=== PATIENT | male | born 1930 | race Caucasian/White ===

== ENCOUNTER 2017-06-24 16:41 | Inpatient (IN) ==
[2017-06-24] MEDS ORDERED: CARDIZEM IV ONE ×2 (17:07→17:51)
[2017-06-24] MEDS ORDERED: ASPIRIN PO ONE (17:14)
[2017-06-24] MEDS: NS 1,000 ML IV ONE ×2 (17:25→18:48)
--- NOTE | 2017-06-24 17:46 | PROVIDER DOCUMENTATION ---
HPI-General Adult - General Chief Complaint: Syncope Stated Complaint: "PASSED OUT"/PAIN IN LFT SIDE Time Seen by Provider: 06/24/17 17:00 Source: patient Allergies/Adverse Reactions: Patient Allergies Allergy/AdvReac Type Severity Reaction Status Date / Time No Known Allergies Allergy Verified 06/24/17 17:42 Home Medications: Home Medication List Medication Instructions Recorded Confirmed Last Taken Type SIMVAstatin [Zocor] 40 mg PO QHS 12/16/12 06/24/17 06/24/17 History Acetaminophen [Tylenol] 650 mg PO PRN PRN 02/14/16 06/24/17 Unknown History Aspirin 81 mg PO DAILY 06/24/17 06/24/17 06/24/17 History Furosemide 40 mg PO DAILY 06/24/17 06/24/17 06/24/17 History Metoprolol Succinate E.r. [Toprol 25 mg PO DAILY 06/24/17 06/24/17 06/24/17 History Xl] - History of Present Illness -Gen Adult Nature of Presenting Problems: Patient complains of palpitations that started today. He actually had a syncopal episode during one of these. He complains of left chest pain. No fever, headache, n/v, neck pain. He has not history of afib. gxt in 2016 was unremarkable. Location of Pain/Injury: reports: other (left chest) Pain Radiation: reports: no radiation Quality of Pain: reports: aching Severity: reports: mild Onset/Duration: reports: 24 hours ago Timing: reports: still present Context/Activities at Onset: reports: none Modifying Factors: improves with: nothing Associated Symptoms: reports: chest pain, syncope. denies: anxiety, cough, dizziness, fever/chills, headaches, joint pain, malaise, nausea, shortness of breath, pain with inspiration, vomiting, trouble walking Similar Symptoms Previously?: No Recently seen or treated by another doctor?: No Review of Systems - Adult - REVIEW OF SYSTEMS - ADULT Constitutional: reports: no symptoms reported Eyes: reports: no symptoms reported Ears, Nose, Mouth & Throat: reports: no symptoms reported Cardiovascular: reports: see HPI, chest pain, palpitations Respiratory: reports: no symptoms reported Gastrointestinal: reports: no symptoms reported Genitourinary: reports: no symptoms reported Musculoskeletal: reports: no symptoms reported Integumentary: reports: no symptoms reported Neurological: reports: see HPI, syncope Psychiatric: reports: no symptoms reported Endocrine: reports: no symptoms reported Hematologic/Lymphatic: reports: no symptoms reported Allergic/Immunologic: reports: no symptoms reported All Other Systems: Reviewed and Negative Past History - Adult - PAST MEDICAL HISTORY-ADULT Review of Records: reports: Old Records Reviewed, Nursing Assessment Review, Medications Reviewed, Social history reviewed & non-contributory. Major Childhood Illnesses: reports: denies history Cardiovascular: reports: HTN, hyperlipidemia Respiratory: reports: denies history Gastrointestinal: reports: denies history Obstetrical/Gynecological: reports: denies history Genitourinary: reports: denies history Musculoskeletal: reports: denies history Neurological: reports: denies history Endocrine/Immune: reports: denies history Other Conditions: reports: denies history - PRIOR SURGERIES/PROCEDURES Surgical/Procedure History: reports: reviewed, not pertinent - IMMUNIZATION STATUS Childhood Immunizations: See Nurse Assessment Flu Vaccine: See Nurse Assessment - FAMILY HISTORY Family History: reviewed, not pertinent - SOCIAL HISTORY Smoking: denies Substance Use: none/never Alcohol Use Frequency: never Living Situation: family Physical Exam-General - PHYSICAL EXAM-ADULT Initial Vital Signs Reviewed: Yes - CONSTITUTIONAL General Appearance: alert - EYES Eyes: PERRL/EOMI, pink conjunctivae - HEAD, EARS, NOSE, MOUTH & THROAT HENMT: normocephalic/atraumatic, moist mucous membranes - NECK Neck: non-tender, full range of motion, supple - RESPIRATORY Respiratory: lungs clear, normal breath sounds - CARDIOVASCULAR Cardiovascular: normal peripheral pulses, tachycardia - GASTROINTESTINAL (ABDOMEN) Abdominal Exam: normal bowel sounds, non tender, soft - MUSCULOSKELETAL Back Exam: normal inspection Extremity: non-tender. negative: calf tenderness - SKIN Integumentary: normal color, normal turgor, warm/dry - NEUROLOGIC Neurologic: javascript application developer II-XII nml as tested, grossly normal - PSYCHIATRIC Psych/Mental Status: normal mood/affect, oriented x 3 Progress - PLAN OF CARE/RESULTS Progress/Plan/Lab Results: Vital Signs - 8 hr 06/24/17 16:48 Temperature 98.2 F Pulse Rate 77 Respiratory Rate 20 Blood Pressure 152/76 O2 Sat by Pulse Oximetry 96 Orders Category Date Time Status Saline Loc NOW Care 06/24/17 17:02 Active CHEST-PORTABLE [RAD] Stat Exams 06/24/17 17:02 Ordered CBC WITH ELECTRONIC DIFF [HEME] Stat Lab 06/24/17 16:51 Uncollected CK PROFILE [SP CHEM] Stat Lab 06/24/17 16:51 Uncollected COMPREHENSIVE METABOLIC PANEL [CHEM] Stat Lab 06/24/17 16:51 Uncollected MAGNESIUM [CHEM] Stat Lab 06/24/17 16:51 Uncollected PRO B-NATRIURETIC PEPTIDE Stat Lab 06/24/17 16:51 Uncollected PROTIME WITH INR [COAG] Stat Lab 06/24/17 16:51 Uncollected PTT [COAG] Stat Lab 06/24/17 16:51 Uncollected TROPONIN T Stat Lab 06/24/17 16:51 Uncollected 0.9% Sodium Chloride Inj [Ns] 1,000 ml Med 06/24/17 17:02 Active IV 999 mls/hr Aspirin Med 06/24/17 17:14 Once 325 mg PO NOW ONE Diltiazem [Cardizem] Med 06/24/17 17:07 Discontinued 10 mg IV NOW ONE EKG [EKG] Stat Ther 06/24/17 16:51 Ordered Result Diagrams: 06/24/17 17:19 06/24/17 17:19 - REASSESSMENT Reassessment #1 Time Reassessed: 18:30 Status: improving (rate now 90-110 after second dose of cardizem. Blood pressure stable. Will start cardizem gtt. Will admit to ICU. Case and plan of care discussed with Dr. Bosch. Will send for head CT now that stable since pt hit head during sycopal episode.) - XRAY 1 XRAY Study: Chest Impression: See EMR Report (NAF) - CT/MRI 1 CT Study: Head, other (c-spine) Impression: See EMR Report (NAF) - CONSULTS/PCP/HOSPITALIST Notification #1 *Consult/PCP/Hospitalist*: Dr. Hay Time Discussed: 18:32 Consult Disposition: Admit (admit to ICU) Departure - Departure Date of Disposition Decision: 06/24/17 Time of Disposition Decision: 18:31 DIAGNOSIS: Atrial fibrillation with RVR, Renal insufficiency, Syncope and collapse Chest pain Qualifiers: Chest pain type: unspecified Qualified Code(s): R07.9 - Chest pain, unspecified Disposition: ADMITTED INPATIENT 09 Certified Medical Emergency: Emergent Condition: Fair - Critical Care Note This patient required my direct & personal management of CC.: Yes Total Time (mins): 45 Critical Care Statement: This patient required my direct personal management to treat or rule out processes, the absence of which, could potentiallly result in sudden, clinically significant life or limb threatening deterioration. Attestation - Physician/ ALEX Attestation Patient care was provided by Advanced Practice Provider:: Yes Advanced Practice Provider:: Bony Ulrich Advanced Practice Provider documentation review:: The Mid-level provider documentation, treatment plan and medical decision making was reviewed by the physician who agrees with all treatment and medical decision making by the MLP. The physician spent face to face time with patient:: No Advanced Practice Provider documentation review:: Supervising physician onsite and consulted in the evaluation and care of this patient. The physician did not have a face to face encounter with the patient.
--- NOTE | 2017-06-24 17:49 | Diag Imaging Result Doc PS360 ---
CHEST-PORTABLE - 06/24/2017 INDICATION: tachycardia TECHNIQUE: COMPARISON: 02/14/2016 FINDINGS: The lungs are normally expanded and clear. Heart size and mediastinal contours are normal. No pneumothorax or pleural effusion. IMPRESSION: Negative exam. Electronically signed by Mauricio Lovett 06/24/2017 5:47 PM
[2017-06-24 17:58] LABS: MANUAL DIFF NEEDED? NO
[2017-06-24 18:06] LABS: BASO% 0.2 % (0.0-0.8); EOS# 0.12 X1000 (0.0-0.7); HEMATOCRIT 44.8 % (42.0-52.0); HEMOGLOBIN 14.8 g/dL (14.0-18.0); IMM GRAN# 0.03 X1000 (0.0-0.04); IMM GRAN% 0.3 % (0.0-0.5); LYMPH# 2.22 X1000 (1.2-3.4); LYMPH% 19.3 % (20.5-51.1); MCH 28.7 PG (27-31); MCV 86.8 FL (81-99); MONO% 9.6 % (1.7-9.3); MPV 11.1 FL (7.4-10.4); NEUT% 69.6 % (42.2-75.2); PLT 195 X1000 (130-400); RBC 5.16 XMIL (4.7-6.1)
[2017-06-24 18:12] LABS: INR 1.02; PROTIME 10.7 Seconds (9.2-11.7); PTT 27.1 Seconds (22.0-36.0)
[2017-06-24 18:22] LABS: ALBUMIN 3.8 g/dL (3.5-5.0); CALCIUM 9.1 mg/dL (8.8-10.2); MAGNESIUM 2.1 mg/dL (1.5-2.7); POTASSIUM 3.7 mmol/L (3.5-5.1); TOTAL BILIRUBIN 0.65 mg/dL (0.20-1.00); TOTAL PROTEIN 6.7 g/dL (6.3-8.3)
[2017-06-24] MEDS ORDERED: CARDIZEM 100 MG/NS 100 MG/100 ML IVPB IV SCH ×2 (18:22→20:12)
[2017-06-24] MEDS ORDERED: NS 1,000 ML ONE (18:44)
[2017-06-24 18:46] LABS: CK INDEX 2.1 (0.0-2.5); CK-MB 6.32 ng/mL (0.0-5.0)
--- NOTE | 2017-06-24 20:00 | Diag Imaging Result Doc PS360 ---
CT HEAD/C-SPINE W/O CONTRAST - 06/24/2017 INDICATION: fall, syncope TECHNIQUE: A CT dose reduction protocol was used. COMPARISON: None FINDINGS: Head CT: The ventricles and sulci are normal in size and contour. No intracranial mass or hemorrhage. The skull is intact. The sinuses, mastoids, and middle ears are clear. Cervical spine: Alignment is anatomic. No fracture or subluxation. There is advanced multilevel disc degeneration and some mild facet degeneration. No significant central canal stenosis. IMPRESSION: No acute injury. Electronically signed by Mauricio Lovett 06/24/2017 7:58 PM
[2017-06-24] MEDS ORDERED: LANOXIN IV SCH (20:38)
[2017-06-24] MEDS ORDERED: TYLENOL 10 MG/KG PO PRN (20:38)
[2017-06-24] MEDS ORDERED: NS 1,000 ML IV ONE (20:38)
[2017-06-24] MEDS ORDERED: ZOFRAN IV PRN (20:38)
--- NOTE | 2017-06-24 21:02 | HISTORY AND PHYSICAL ---
CHIEF COMPLAINT: Shortness of breath and syncope. HISTORY OF PRESENT ILLNESS: Briefly, this is an 86-year-old gentleman with a history of possibly atrial flutter, who comes in for last 24 hours complaining of palpitations. He had an episode of syncope today where he just flat out passed out and also complained of left-sided chest pain and left arm pain. Reportedly no history of atrial fibrillation, but he does report that he had flutter issues in the past. He had a GXT apparently in 2016, which was unremarkable. He has seen Dr. Selby in the past as well. Today he is in atrial fibrillation with rapid ventricular response and he was admitted for further treatment. Borderline hypotension, he did respond somewhat to Cardizem, but he is still tachycardic with marginal blood pressures. He does report shortness of breath. He does report lower extremity edema. He had an echocardiogram done in February 2016 which showed an EF of 70%, possible hypertrophy, hypokinesis, diastolic dysfunction. Otherwise, really not that remarkable. Patient admitted for atrial fibrillation with rapid ventricular response. PAST MEDICAL HISTORY: 1. Possible aflutter versus atrial fibrillation. 2. Hypertension. 3. Dyslipidemia. PAST SURGICAL HISTORY: Denies. SOCIAL HISTORY: No tobacco. He drinks socially, sometimes wine, sometimes beer, but not on a daily basis. He is retired. ALLERGIES: No known drug allergies. MEDICATIONS: He takes aspirin 81 daily, Lasix 40 daily, Toprol-XL 25 daily, and simvastatin. REVIEW OF SYSTEMS: Negative times a 10-point review of systems. There is no GI bleeding. He has had prostate surgery. It sounds like he has had a TURP. PHYSICAL EXAMINATION: VITAL SIGNS: Blood pressure 113/74, heart rate 140, respiratory rate 92, temperature 98.2 degrees. GENERAL: A well-developed male, in no acute distress. HEAD: Normocephalic, atraumatic. EYES: Pupils equal, round, reactive to light. Extraocular movements were intact. EAR/NOSE/THROAT: Moist mucous membranes. NECK: Supple. CARDIOVASCULAR EXAM: Was tachy, irregular. PULMONARY: Bilateral breath sounds diminished at the bases. He had some rales at the right base. GI: Soft, nontender, nondistended. Bowel sounds are positive. EXTREMITIES: No clubbing or cyanosis. LYMPHATICS: No peripheral edema. NEUROLOGICAL: Nonfocal. LYMPHATIC EXAM: He did have peripheral edema, 2+ pitting edema in his ankles. ASSESSMENT: This is an 86-year-old male with history of aflutter possibly, presenting with atrial fibrillation with rapid ventricular response. 1. Atrial fibrillation with rapid ventricular response. He has been given Cardizem. We will initiate an IV Cardizem drip assuming his blood pressure can tolerate that. I think I may give him some digoxin additionally. We will obviously monitor on telemetry. We will get serial cardiac enzymes. We will get an echocardiogram assuming his heart rate is improved in the morning. Cardiology consultation and follow. He does qualify [id number] above 2. We will initiate Lovenox. He may need an ischemic workup that will be per cardiology's recommendations. 2. Mild kidney injury. We will hold his Lasix, continue hydration and follow. He does have some lower extremity edema, but I am not sure that may be related to heart failure related to his atrial fibrillation. We will give gentle hydration and follow. Supplement potassium, magnesium above 4 and above the level of 2. DISPOSITION: Pending his clinical course. We will continue to monitor. cc: Jose Hay MD
[2017-06-24] MEDS: LOVENOX SUBQ SCH (21:46)
[2017-06-24] MEDS: ZOCOR PO SCH (21:47)
[2017-06-24 22:26] LABS: CK INDEX 2.1 (0.0-2.5); CK-MB 6.13 ng/mL (0.0-5.0)
[2017-06-25] MEDS: TYLENOL PO PRN (00:01)
[2017-06-25 05:24] LABS: HEMATOCRIT 38.2 % (42.0-52.0); HEMOGLOBIN 12.4 g/dL (14.0-18.0); MCH 29.4 PG (27-31); MCHC 32.5 g/dL (33-37); MCV 90.5 FL (81-99); MPV 10.9 FL (7.4-10.4); RBC 4.22 XMIL (4.7-6.1)
[2017-06-25 05:45] LABS: CALCIUM 8.1 mg/dL (8.8-10.2); MAGNESIUM 2.2 mg/dL (1.5-2.7); POTASSIUM 3.8 mmol/L (3.5-5.1)
--- NOTE | 2017-06-25 06:04 | EKG Report ---
Test Performed on : 06/24/2017 4:53:21 PM Test Reason : Re-Ordered/CP Blood Pressure : / mmHG Vent. Rate : 148 BPM Atrial Rate : 166 BPM P-R Int : 000 ms QRS Dur : 106 ms QT Int : 326 ms P-R-T Axes : 000 031 252 degrees QTc Int : 511 ms Atrial fibrillation. with rapid ventricular response. Incomplete right bundle branch block ST \T\ T wave abnormality, consider inferior ischemia ST \T\ T wave abnormality, consider anterolateral ischemia Abnormal ECG When compared with ECG of 14-FEB-2016 22:17, Atrial fibrillation. has replaced Sinus rhythm. Vent. rate has increased BY 84 BPM Incomplete right bundle branch block is now present Inverted T waves have replaced nonspecific T wave abnormality in Inferior leads Unconfirmed Result
[2017-06-25] MEDS: PRILOSEC PO SCH (06:11)
--- NOTE | 2017-06-25 06:33 | EKG Report ---
Test Performed on : 06/24/2017 9:39:27 PM Test Reason : No Order in [facility] Blood Pressure : / mmHG Vent. Rate : 060 BPM Atrial Rate : 060 BPM P-R Int : 138 ms QRS Dur : 102 ms QT Int : 484 ms P-R-T Axes : 031 051 -88 degrees QTc Int : 484 ms Normal sinus rhythm. Incomplete right bundle branch block ST \T\ T wave abnormality, consider inferior ischemia ST \T\ T wave abnormality, consider anterolateral ischemia Prolonged QT Abnormal ECG When compared with ECG of 24-JUN-2017 16:53, (Unconfirmed) Sinus rhythm. has replaced Atrial fibrillation. Vent. rate has decreased BY 88 BPM Nonspecific T wave abnormality now evident in inferior - new Nonspecific T wave abnormality now evident in anterior-septal leads - new consider inferior-lateral ischemia as cause for new changes Clinical Correlation advised Confirmed by Jose Khan DO ([id number]) on 06/26/2017 5:59:18 PM
[2017-06-25] MEDS: TOPROL XL PO SCH (08:48)
[2017-06-25] MEDS: ASPIRIN PO SCH (08:48)
[2017-06-25] MEDS: LOVENOX SUBQ SCH ×2 (08:48→21:23)
--- NOTE | 2017-06-25 09:55 | PROGRESS NOTE ---
DATE: 06/25/2017 SUBJECTIVE: Mr. Cedillo is an 86-year-old who presented with shortness of breath and syncope. He reports that he was in his recliner, had just finished doing some work with a tractor and outside. His is bedbound. Came in, was in the recliner. Got up to go get some I am not sure what that is. When he reached up, that is the last he remembered. He passed out and fell backwards. Complained of some left-sided chest pain and apparently left arm. No history of atrial fibrillation by his report but he said that he had flutter in the past. GXT in 2016 unremarkable. He had a rapid ventricular response and seemed to respond to Cardizem. I think they started some digoxin. Last echocardiogram was in February of 2016. Echocardiogram ejection fraction 70%. Possible hypertrophy. No hypokinesis. I believe that he had some diastolic dysfunction reported. PAST MEDICAL HISTORY: Possible flutter versus atrial fibrillation, hypertension, dyslipidemia. REVIEW OF SYSTEMS: He states he feels weak today but he has not had any further spells. No chest pain. Wants to know when he can go home. PHYSICAL EXAMINATION: Vital Signs: Temperature is 97.7 degrees, pulse 60 respirations 12, blood pressure 106/59. HEENT: Pupils are equal and round. Lungs: Are clear in all lung hernández. Cardiovascular Examination: Regular rhythm and rate without murmur or S3. Abdomen: Soft. Skin: Is warm and dry. Weight: 196 pounds. Urine Output: Over 500 mL. LAB: Reviewed from the and . CBC unremarkable. Chemistries unremarkable. Creatinine 1.2. CPK was 293 and troponin less than 0.01 but then this morning, he had one of 0.034. His EKG this morning, he has right bundle-branch block, nonspecific ST waves in the face of right bundle- branch. Previous EKG early on the , he was in atrial fibrillation with rapid ventricular rate and right bundle-branch pattern at that time as well. ASSESSMENT AND PLAN: 1. Atrial fibrillation with rapid ventricular response. His CHADS2-VASc score is above 2. He is on Lovenox. He was put on some Cardizem. He is in sinus rhythm at the present time. They added some digoxin. Cardiology to evaluate. He has had fairly recent GXT and echocardiogram. We will repeat echocardiogram. 2. Mild kidney injury with creatinine of 1.2. I suspect this is his baseline and may represent some mild chronic kidney disease. They did apply some gentle hydration. 3. A bump in the troponin. It is a little concerning. Last GXT was apparently in 2015. Looking back at his reports, his GXT done February of 2016, study showed normal myocardial perfusion. No evidence of inducible or ischemic scar. Echocardiogram done on 03/09/[address] Selby. Preserved left ventricular function. Ejection fraction above 70%. Again, left ventricle is not well visualized. Possible hypertrophy. Correlation was made with nuclear perfusion scan to exclude a scar, impaired left ventricular relaxation and elevation of atrial pressure consistent with diastolic dysfunction. Pulmonary hypertension with estimated pulmonary arterial pressure of 63 mmHg. There is calcification of the mitral valve annulus but no sign of obstruction. No significant valvular dysfunction appreciated. Did have some mild degree of mitral regurgitation. cc: Marvin Piedra MD
[2017-06-25 10:48] LABS: CK INDEX 2.2 (0.0-2.5); CK-MB 5.92 ng/mL (0.0-5.0)
--- NOTE | 2017-06-25 10:54 | CONSULTATION ---
DATE OF CONSULTATION: 06/25/2017 INDICATION: New-onset atrial fibrillation. HISTORY OF PRESENT ILLNESS: Mr. Cedillo is an 86-year-old white male with a history of hyperlipidemia and hypertension, who normally follows with Dr. Selby. He presented for evaluation of a fall and new-onset atrial fibrillation yesterday. Apparently, he was working for 2 to 3 hours on his tractor yesterday in the morning. He came home for a little bit of rest. Apparently had some family over. He went back out for another 30 minutes to do some light activity, and then came in. He apparently sat down for some rest on his recliner. Shortly after that, for some reason, he got up to take an aspirin. He could not clarify exactly why he needed the aspirin, but shortly after standing up, he walked over into the kitchen to get the bottle, and apparently upon reaching over to get it, he got real lightheaded and fell backwards onto the floor. He remembers hitting the floor. It does not appear that he had a syncopal spell. He was unable to get up off the floor immediately after the event, and was able to get to the phone, called 911, and within 5 to 10 minutes, he believes EMS arrived and were able to get him off the floor. He refused transfer to the hospital via EMS. Eventually, his son came over and brought him to the hospital. He did not have any heart racing. He has a lot of difficulty clarifying when he had any sort of onset of chest discomfort. He adamantly denied any sort of chest discomfort occurring while he was in the chair, prompting him to get the aspirin. He may have had onset of chest discomfort after he fell. That was described as a left-sided aching discomfort in his shoulder area, down his left arm. He has no history of coronary disease. He had a normal stress test 1 year ago. PAST MEDICAL HISTORY: Significant for: 1. Hypertension. 2. Hyperlipidemia. 3. Sleep apnea. 4. History of palpitations. 5. History of chest pain evaluation with normal nuclear scan in 02/2016. SOCIAL HISTORY: He lives at home with his , who is apparently homebound. No tobacco. FAMILY HISTORY: Significant for hypertension. REVIEW OF SYSTEMS: A 10-system review of systems is negative, except for those things mentioned in the HPI. PHYSICAL EXAMINATION: Vital Signs: He is afebrile, heart rate presently is in the high 50s to low 60s, blood pressure 106/59. General: He is in no acute distress. HEENT: Oropharynx is moist. He is essentially edentulous. Eye examination shows pink conjunctivae. White sclerae. Neck: No obvious thyromegaly or thyroid tenderness. Cardiovascular: He appears to be in a regular rate and rhythm. He has no obvious murmurs. Telemetry currently shows sinus. Extremities: He has no lower extremity edema. Warm and well-perfused lower extremities. Chest: Clear bilaterally. He has no increased work of breathing. Abdomen: Soft, nontender, nondistended. He has no obvious organomegaly. Skin: Warm and dry throughout without any rashes. Neurological: He is moving all extremities well. Cranial nerves II through XII are intact without any sensation deficits. Psychiatric: He is alert, oriented, pleasant. Normal mood and affect. PERTINENT DATA: His EKG at 1652 yesterday shows atrial fibrillation, rapid ventricular response, rate of 148 beats per minute. He does have symmetric T-wave inversions in the anterolateral leads. Subsequent EKG at 1851 was essentially identical to that. His final EKG at 2138 yesterday shows sinus rhythm, rate of 60 beats per minute, symmetric T-wave inversions in the anterolateral leads. This appears consistent with his most recent EKG from his visit with Dr. Selby in 01/2017. His laboratory data shows a white count of 6, his hematocrit is 38.2, his platelet count is 144,000. With hydration, he has gone from hematocrit of 44 to 38. His sodium is 142, potassium 3.8, BUN 21, creatinine 1.2 (yesterday, it was 25 and 1.3). His cardiac enzymes have been negative thus far. His proBNP was 2579 yesterday. TSH normal. ASSESSMENT: 1. Fall. 2. Probable dehydration. 3. New-onset atrial fibrillation. PLAN: His EKG is unchanged. His cardiac enzymes are unremarkable. For now, we will order him a diet and make him n.p.o. after midnight for potential stress testing tomorrow if issues change, but currently we will treat him as a new-onset atrial fibrillation. His echo is pending. We will consider oral anticoagulation tomorrow, but will need to have further discussions with him about his fall risk. For now, would continue with the current evaluation. cc: Bernard Khan MD
--- NOTE | 2017-06-25 17:29 | ECHO REPORT ---
ORDER DATE: 06/25/2017 INTERPRETING PHYSICIAN: Dr. Selby REQUESTING PHYSICIAN: CLINICAL INDICATIONS: An 86-year-old male with syncope, shortness of breath. M-MODE MEASUREMENTS: Right ventricle: 2.8 cm. Left ventricle end diastole: 4.3 cm. Left ventricle end systole: 2.7 cm. Posterior wall: 1.1 cm. Interventricular septum: 1.2 cm. Left atrium: 5.2 cm. Aortic root: 3.5 cm. SUMMARY OF 2-DIMENSIONAL IMAGING: The left ventricle is hypertrophic. The hypertrophy appears to be mostly confined to the apex of the left ventricle. The aortic valve looks normal. Color flow mapping unremarkable. The mitral annulus shows moderate calcification. Color flow mapping of the mitral valve indicates a [id number] degree of regurgitation. The right ventricle appears to be at the upper limits of normal. The left atrium is significantly enlarged. Pulse wave Doppler of mitral inflow shows "normal" E/A ratio. Tissue Doppler of septal and lateral mitral annulus averages 7 cm per second. There is no significant diastolic dysfunction. The pulmonic valve appears to be grossly normal. The tricuspid valve shows a moderate degree of regurgitation with pulmonary pressure estimated at 78 mmHg. There is no pericardial effusion. The inferior vena cava is not dilated. The right atrium is unremarkable. Definity was injected to better define the apex of the left ventricle. The apex appears to be hypertrophic. This probably represents a case of apical left ventricular hypertrophy. IMPRESSION: In summary, this study shows: 1. Excellent left ventricular systolic function. Ejection fraction estimated at 70% or so with hypertrophy of the apex with a focal area of impairment in the most apical portion of the anterior wall suggesting either ischemia or a focal scar versus just an abnormal contractility pattern related to the apical hypertrophy. 2. Dense calcification of mitral annulus. 3. Moderate to significant pulmonary hypertension. Clinical correlation recommended. Please take notice that Definity was used to opacify the left ventricular chamber in this study. cc: MD Jose Jonas MD
[2017-06-25 19:56] LABS: CK INDEX 1.3 (0.0-2.5); CK-MB 5.35 ng/mL (0.0-5.0)
[2017-06-25] MEDS: ZOCOR PO SCH (21:23)
[2017-06-26] MEDS: TYLENOL PO PRN (00:15)
[2017-06-26] MEDS: PRILOSEC PO SCH (06:19)
--- NOTE | 2017-06-26 06:53 | EKG Report ---
Test Performed on : 06/26/2017 06:15:37 AM Test Reason : afib Blood Pressure : / mmHG Vent. Rate : 062 BPM Atrial Rate : 062 BPM P-R Int : 144 ms QRS Dur : 110 ms QT Int : 410 ms P-R-T Axes : 044 011 -39 degrees QTc Int : 416 ms Sinus rhythm. with occasional premature ventricular complexes. Incomplete right bundle branch block Nonspecific ST and T wave abnormality Abnormal ECG When compared with ECG of 24-JUN-2017 21:39, (Unconfirmed) premature ventricular complexes. are now present Nonspecific T wave abnormality has replaced inverted T waves in Inferior leads Nonspecific T wave abnormality has replaced inverted T waves in Anterior leads Clinical Correlation advised Confirmed by Jose Khan DO ([id number]) on 06/26/2017 6:16:19 PM
--- NOTE | 2017-06-26 08:18 | PROGRESS NOTE ---
DATE: 06/26/2017 SUBJECTIVE: Mr. Cedillo is 86 years old. He had a good night. He has not had any further chest pain. He remains in sinus rhythm. EKG this morning really similar to EKGs yesterday. Right bundle branch block, nonspecific T-wave, flattening and inversion inferior and anterior lateral leads. He remains afebrile. OBJECTIVE: Vital Signs: Temperature 97.4 degrees, pulse 60, respirations 18, blood pressure 127/63. 6 cm. Lungs are clear in all lung hernández. Cardiovascular: Regular rhythm and rate without murmur or S3. Abdomen soft. Skin is warm and dry. Urine output is over a 1000 mL. LABORATORY DATA: White count 6050, hematocrit 38, platelet count 144,000. Chemistries from yesterday reviewed. CPK: Series 269 with an index 2.2 and then 415 with an index of 1.3. MB fraction was 5.9 and 5.35. His troponin though has come down. It was 0.34, yesterday, 0.32 and this morning 0.017. ASSESSMENT AND PLAN: 1. He had a fall. It does not sound like it was a true syncopal episode. Question on when chest pain started. He has mild elevation of CPK. EKG with right bundle branch block. Nonspecific T-wave inversion. Suspect we are pursuing a stress test. His echocardiogram showed good left ventricular function. He does have some pulmonary hypertension with a calculated pulmonary arterial pressure of 78 mmHg. Ejection fraction 70%. He had some hypertrophy of the apex and focal area of impairment in the most apical portion of the anterior wall suggestive of either ischemia or focal scar. 2. Mild kidney injury. Creatinine is 1.2, and it has been stable. I suspect he has some mild chronic kidney insufficiency. 3. Atrial fibrillation with rapid ventricular rate on presentation, and his CAD Score is above 2 but we have to assess his fall risk. He was put on some Cardizem. He is converted back to sinus rhythm. cc: Marvin Piedra MD
[2017-06-26] MEDS: LOVENOX SUBQ SCH (08:35)
[2017-06-26] MEDS: ASPIRIN PO SCH (08:35)
--- NOTE | 2017-06-26 09:08 | PROGRESS NOTE ---
DATE: 06/26/2017 SUBJECTIVE: Mr. Cedillo is not in any chest pain overnight. No heart racing. OBJECTIVE: Vital Signs: On physical examination, he is afebrile. Heart rate of 55, blood pressure 112/63. His current telemetry seems to show that he is in sinus rhythm with relative sinus bradycardia. General: No acute distress. Cardiovascular: He is in a regular rate and rhythm. No murmurs. No S3. Abdomen: Soft, nontender, nondistended. He has no obvious organomegaly. Skin Exam: Warm and dry throughout. PERTINENT DATA: White count is 6, hematocrit 38.2, platelet count 144. Sodium 142, potassium 3.8, BUN 21, creatinine 1.2. His cardiac enzymes: Specifically, his troponin has been negative. His CK-MB's have been slightly positive, but the indexes are normal with the elevations of his CK's taken into account. ASSESSMENT: 1. New onset atrial fibrillation. 2. Fall. PLAN: We will proceed with myocardial perfusion imaging as the patient is a poor historian, and there was some discussion about whether or not the patient had some chest discomfort in the last 48 hours or so. It does not appear to have had a syncopal episode recently. We will proceed with myocardial perfusion imaging, and again he is a questionable candidate for anticoagulation long- term because of recent issues with falls. His echocardiogram was performed yesterday. This did demonstrate a preserved EF with a focal area of impairment in the most apical portion, possibly due to focal hypertrophy in that area versus possible ischemia or scar. Again, perfusion imaging to be performed today. cc: Bernard Khan MD
[2017-06-26] MEDS ORDERED: LEXISCAN ONE (14:25)
[2017-06-26] MEDS: TOPROL XL PO SCH (15:14)
[2017-06-26 15:53] VITALS: BP 127/58
--- NOTE | 2017-06-26 16:03 | Diag Imaging Result Document ---
PROCEDURE NAME: MYOCARDIAL PERF SCAN, STR/REST - 06/26/2017 STUDY: Myocardial perfusion scan. INDICATION: Chest pain. PROCEDURES PERFORMED: 1. One-day stress-rest myocardial perfusion imaging. 2. Lexiscan stress. PROCEDURE IN DETAIL: Mr. Cedillo was brought to the nuclear laboratory and had a resting study with injection of 13 mCi of technetium-99m sestamibi with usual imaging protocol utilized. He subsequently was brought back and had a Lexiscan stress. At peak stress, he was injected with 41.1 mCi of technetium-99m sestamibi with usual imaging protocol utilized. FINDINGS: LEXISCAN STRESS RESULTS: 1. Baseline EKG shows sinus rhythm. 2. Lexiscan stress did not demonstrate any clear evidence of ischemic related EKG changes or significant arrhythmias. PERFUSION IMAGING RESULTS: 1. No evidence of abnormal extracardiac uptake. 2. No evidence of transient ischemic dilatation. 3. Perfusion imaging shows normal homogeneous uptake of radiotracer throughout the myocardial segments. There is no evidence of stress-related defects. 4. There is a normal ejection fraction of 83%. End-diastolic volume 75, end-systolic volume of 13. Normal wall motion. cc: MD Zarina Duron PA
--- NOTE | 2017-06-26 16:46 | DISCHARGE SUMMARY ---
ADMISSION DATE: 06/24/2017 DISCHARGE DATE: 06/26/2017 HISTORY OF PRESENT ILLNESS: An 86-year-old, white male, with history of possible atrial flutter, who presented with shortness of breath and syncope on 06/24/2017. He had a history of palpitations and episodic syncope the day of admission where he just flat passed out, complained of left-sided chest pain and flutter issues in the past. He has had a GXT in 2016, but it was unremarkable and followed by Dr. Selby. He also presented today with atrial fibrillation and rapid ventricular rate and admitted for further treatment. PAST MEDICAL HISTORY: 1. Atrial flutter versus atrial fibrillation. 2. Hypertension. 3. Dyslipidemia. SOCIAL HISTORY: No history of tobacco. He drinks socially. PAST SURGICAL HISTORY: Really negative. HOSPITAL COURSE: Cardiology was consulted. He was admitted. Dr. Khan saw him. He apparently was working for 2 or 3 hours on his tractor in the morning, came home, got a little bit of rest and went out and did a little more activity. He came in and sat down for some rest in his recliner. Shortly after that for some reason he got up to get an aspirin. Did not clarify what he needed it for, was not sure if it was chest pain, but he denies that it was chest pain, but he got up to get an aspirin and then, when he walked over to the kitchen get the bottle apparently reached up and he fell backwards. He apparently did not pass out by his report, but he fell back and hit his head. He was not able to get up from the floor so dialed 911. The paramedics came in 5 to 10 minutes, and were able to get him off the floor. He refused transfer via EMS. Eventually, his son came over and talked him into coming in the hospital. Denied any further chest pain. On monitor he went back into sinus rhythm. On the Vas cath score he technically would benefit on risk scale for anticoagulant, but his risk of fall and his independence after talking to him I think that the risk of having anticoagulant would be higher than the risk of not taking it. He underwent a myocardial perfusion scan and it was unremarkable. No sign of coronary reperfusion, and felt he could go home. We will continue his current medications. Want to follow with Dr. Selby in a couple months. DISCHARGE MEDICATIONS: 1. Aspirin 81 mg a day. 2. Toprol-XL 25 mg a day. 3. Prilosec 40 mg a day. 4. Zocor 40 mg daily. cc: Marvin Piedra MD
== END 2017-06-26 17:57 | disposition home or self-care (01) ==
LOC: ED 16:41 → SUATTDRO 19:44 → 3S 19:44
PROVIDERS: ATTEND Emergency Medicine

== ENCOUNTER 2018-10-13 22:29 | Inpatient (IN) ==
[2018-10-13] MEDS ORDERED: ASPIRIN PO ONE (22:44)
[2018-10-13] MEDS ORDERED: G.I. COCKTAIL PO ONE (22:46)
[2018-10-13] MEDS ORDERED: SODIUM CHLORIDE 0.9% INJ ONE (22:58)
[2018-10-13] MEDS ORDERED: PHENERGAN IV ONE (22:58)
[2018-10-13] MEDS ORDERED: MORPHINE IV ONE (22:58)
[2018-10-13 23:23] LABS: BASO# 0.02 X1000 (0.0-0.2); BASO% 0.2 % (0.0-0.8); EOS% 1.6 % (0.0-10.0); HEMATOCRIT 46.8 % (42.0-52.0); HEMOGLOBIN 15.2 g/dL (14.0-18.0); IMM GRAN# 0.04 X1000 (0.0-0.04); IMM GRAN% 0.3 % (0.0-0.5); LYMPH# 2.35 X1000 (1.2-3.4); MCH 28.4 PG (27-31); MCHC 32.5 g/dL (33-37); MCV 87.5 FL (81-99); MONO# 0.62 X1000 (0.11-0.59); MPV 10.5 FL (7.4-10.4); NEUT# 9.17 X1000 (1.4-6.5); NEUT% 73.9 % (42.2-75.2); PLT 188 X1000 (130-400); RBC 5.35 XMIL (4.7-6.1)
--- NOTE | 2018-10-13 23:30 | EKG Report ---
Test Performed on : 10/13/2018 10:54:41 PM Test Reason : epigastric Blood Pressure : / mmHG Vent. Rate : 059 BPM Atrial Rate : 059 BPM P-R Int : 162 ms QRS Dur : 120 ms QT Int : 468 ms P-R-T Axes : 062 023 040 degrees QTc Int : 463 ms Sinus bradycardia. Right bundle branch block T wave abnormality, consider lateral ischemia Abnormal ECG When compared with ECG of 23-JUL-2017 09:31, Previous ECG has undetermined rhythm, needs review Right bundle branch block has replaced RSR' pattern in V1 Nonspecific T wave abnormality has replaced inverted T waves in Inferior leads Unconfirmed Result
[2018-10-13 23:38] LABS: INR 0.96; PROTIME 13.3 Seconds (11.0-16.0)
[2018-10-13 23:39] LABS: PTT 36.1 Seconds (22.3-41.8)
[2018-10-13 23:47] LABS: ALBUMIN 3.5 g/dL (3.5-5.0); ALKALINE PHOSPHATASE 92 U/L (32-122); BUN 14 mg/dL (8-22); CALCIUM 9.3 mg/dL (8.8-10.2); CK PROFILE 119 U/L (24-204); CREATININE 1.3 mg/dL (0.7-1.2); ESTIMATED GFR 52; GLUCOSE 142 mg/dL (70-104); GOT 247 U/L (10-34); GPT 99 U/L (10-44); TOTAL PROTEIN 6.9 g/dL (6.3-8.3)
[2018-10-13 23:49] LABS: AGAP 13; CHLORIDE 102 mmol/L (98-107); POTASSIUM 4.4 mmol/L (3.5-5.1); SODIUM 138 mmol/L (136-145); TCO2 24 mmol/L (25-35)
[2018-10-14] MEDS ORDERED: NS 1,000 ML IV ONE ×4 (01:07→06:45)
[2018-10-14] MEDS ORDERED: ZOSYN 3.375 GM in NS 50 ML IV ONE ×2 (01:29→11:59)
[2018-10-14 03:00] LABS: BILIRUBIN URINE NEGATIVE (NEGATIVE); BLOOD URINE 3+ (NEGATIVE); CLARITY CLEAR (CLEAR); COLOR YELLOW; GLUCOSE URINE NEGATIVE (NEGATIVE); KETONE URINE NEGATIVE (NEGATIVE); LEUKOCYTES URINE 2+ (NEGATIVE); NITRITE URINE NEGATIVE (NEGATIVE); PROTEIN URINE TRACE mg/dL (NEGATIVE); URINE SOURCE CATH; UROBILINOGEN URINE 8 mg/dL
[2018-10-14 03:13] LABS: URINE BACTERIA 4+ /HFP; URINE EPITHELIAL CELLS <10 /HPF (<10); URINE RBC 20-40 /HPF (<10)
[2018-10-14] MEDS ORDERED: VANCOMYCIN 1 GM/NS 1 GM/250 ML IVPB IV ONE ×2 (03:53→07:30)
--- NOTE | 2018-10-14 04:22 | PROVIDER DOCUMENTATION ---
HPI-Abdominal Pain/GI Problem - General Chief Complaint: Nausea Stated Complaint: abdominal pain Time Seen by Provider: 10/13/18 23:19 Source: patient Allergies/Adverse Reactions: Patient Allergies Allergy/AdvReac Type Severity Reaction Status Date / Time No Known Allergies Allergy Verified 06/24/17 17:42 Home Medications: Home Medication List Medication Instructions Recorded Confirmed Last Taken Type SIMVAstatin [Zocor] 40 mg PO QHS 12/16/12 10/13/18 06/24/17 History Aspirin 81 mg PO DAILY 06/24/17 10/13/18 06/24/17 History Furosemide 40 mg PO DAILY 06/24/17 10/13/18 06/23/17 History Acetaminophen [Tylenol] 650 mg PO Q6H PRN PRN #0 tablet 06/26/17 10/13/18 Unknown Rx Metoprolol Succinate E.r. [Toprol 25 mg PO DAILY tablet 06/26/17 10/13/18 Unknown Rx Xl] Amiodarone [Cordarone] 200 mg PO DAILY #30 tablet 07/24/17 10/13/18 Unknown Rx - History of Present Illness-ABD Nature of Presenting Problems: pt is 87 yo WM w c/o epigastric pain and n/v onset tonight [employer], after eating chili and beans, upon arrival patient was vomiting several episodes, pt. states pain is severe w/o relieving or exacerbating factors, pt is A&Ox 3 and answering questions appropriately. pt has edema to left lower leg +3 pitting, pt states it does that sometimes and usually resolves in AM, pt lungs are clear CTA at the time of arrival, pt deneis fever, diarrhea, syncope, CP or congestion at this time, pt has HX of CHF and HTN controlled with medication. Abdominal Pain Onset Location: reports: epigastric, generalized abdomen Pain Radiation: reports: no radiation Quality of Pain: reports: pressure, sharp Severity in ED: reports: severe Onset/Duration: reports: 1-3 hours ago Timing: reports: still present, intermittent Activities at Onset: reports: eating Exposure to sick contacts?: No Modifying Factors: improves with: nothing Associated Symptoms: reports: diaphoresis, heartburn, nausea, pain with inspiration. denies: chest pain, constipation, cough, diarrhea, dizziness, EENT symptoms, fatigue, fever/chills, headaches, joint pain, loss of appetite, sinus congestion/drainage, seizure, shortness of breath, sensory/motor loss Last BM: unsure Dark Stools Present?: reports: none noticed Rectal Bleeding: reports: none Rectal Pain: reports: none # of Vomiting Episodes: 5 Emesis Description: reports: other (green bile appearance) Bruising or Bleeding Gums?: No Similar Symptoms Previously?: No Recently seen or treated by another doctor?: No Review of Systems - Adult - REVIEW OF SYSTEMS - ADULT Constitutional: reports: fatique Eyes: reports: no symptoms reported Ears, Nose, Mouth & Throat: reports: no symptoms reported Cardiovascular: reports: edema Respiratory: reports: no symptoms reported Gastrointestinal: reports: abdominal pain, frequent heartburn, nausea, vomiting Genitourinary: reports: no symptoms reported Musculoskeletal: reports: no symptoms reported Integumentary: reports: no symptoms reported Neurological: reports: no symptoms reported Psychiatric: reports: no symptoms reported Endocrine: reports: no symptoms reported Hematologic/Lymphatic: reports: no symptoms reported Allergic/Immunologic: reports: no symptoms reported All Other Systems: Reviewed and Negative Past History - Adult - PAST MEDICAL HISTORY-ADULT Review of Records: reports: Old Records Reviewed, Nursing Assessment Review, Medications Reviewed Major Childhood Illnesses: reports: denies history Cardiovascular: reports: CHF, HTN, hyperlipidemia Respiratory: reports: denies history Gastrointestinal: reports: denies history Obstetrical/Gynecological: reports: denies history Genitourinary: reports: kidney stones Musculoskeletal: reports: denies history Neurological: reports: denies history Endocrine/Immune: reports: denies history Other Conditions: reports: denies history - PRIOR SURGERIES/PROCEDURES Surgical/Procedure History: reports: reviewed, not pertinent - IMMUNIZATION STATUS Childhood Immunizations: See Nurse Assessment Flu Vaccine: See Nurse Assessment - FAMILY HISTORY Family History: reviewed, not pertinent - SOCIAL HISTORY Smoking: denies, quit greater than 1 year Substance Use: none/never Alcohol Use Frequency: never Living Situation: family Physical Exam-General - PHYSICAL EXAM-ADULT Initial Vital Signs Reviewed: Yes - CONSTITUTIONAL General Appearance: alert, severe distress, anxious - EYES Eyes: PERRL/EOMI, pink conjunctivae, sclera injected. negative: anisocoria, conjuctival exudate, photophobia, scleral icterus - HEAD, EARS, NOSE, MOUTH & THROAT HENMT: normocephalic/atraumatic, pharynx normal. negative: moist mucous membranes - NECK Neck: non-tender, supple. negative: carotid bruit, lymphadenopathy - RESPIRATORY Respiratory: chest non-tender, lungs clear, normal breath sounds, no pleuratic chest pain, no respiratory distress, no accessory muscle use - CARDIOVASCULAR Cardiovascular: normal peripheral pulses, regular rate, rhythm, no JVD, no murmur, other (+3 pitting edema to left lower extremitiy extending to knee) - GASTROINTESTINAL (ABDOMEN) Abdominal Exam: normal bowel sounds, soft, guarding, Sánchez's sign. negative: abdominal bruit, rigid, rebound, mass, prominent aortic pulsations - LYMPHATIC Lymphatic: no adenopathy - MUSCULOSKELETAL Back Exam: normal inspection Extremity: normal range of motion, no calf tenderness, pedal edema, other (left lower extremity edema, all other extremities WNL, pulses present in all extremities) Peripheral Pulses: radial (R): 2+, radial (L): 2+, dorsalis-pedis (R): 1+, dorsalis-pedis (L): 1+ - SKIN Integumentary: normal color, normal turgor, warm/dry - NEUROLOGIC Neurologic: grossly normal, no motor/sensory deficits. negative: EOM palsy, facial droop, motor weakness - PSYCHIATRIC Psych/Mental Status: normal mood/affect, normal thought content, normal thought process, oriented x 3 Progress - PLAN OF CARE/RESULTS Progress/Plan/Lab Results: Vital Signs - 8 hr 10/13/18 22:29 10/14/18 00:00 10/14/18 02:54 Temperature 96.7 F L 98.2 F 98.2 F Pulse Rate 62 86 90 Respiratory Rate 16 22 15 Blood Pressure 137/70 127/88 108/50 O2 Sat by Pulse Oximetry 99 96 94 L Laboratory Results - last 24 hr 10/13/18 10/13/18 10/13/18 23:10 23:10 23:10 WBC 12.40 H RBC 5.35 Hgb 15.2 Hct 46.8 MCV 87.5 MCH 28.4 MCHC 32.5 L RDW Std Deviation 14.0 Plt Count 188 MPV 10.5 H Immature Gran % (Auto) 0.3 Neut % (Auto) 73.9 Lymph % (Auto) 19.0 L [place] % (Auto) 5.0 Eos % (Auto) 1.6 Baso % (Auto) 0.2 Immature Gran # (Auto) 0.04 Neut # (Auto) 9.17 H Lymph # (Auto) 2.35 [place] # (Auto) 0.62 H Eos # (Auto) 0.20 Baso # (Auto) 0.02 PT INR PTT (Actin FS) Sodium 138 Potassium 4.4 Chloride 102 Carbon Dioxide 24 L Anion Gap 13 BUN 14 Creatinine 1.3 H Estimated GFR/1.73 m2 52 BUN/Creatinine Ratio 11 Glucose 142 H Calcium 9.3 Total Bilirubin 2.60 H AST 247 H ALT 99 H Alkaline Phosphatase 92 Creatine Kinase 119 Troponin T Aqi-O-Brauaozezbn Pept Total Protein 6.9 Albumin 3.5 Globulin 3.0 Albumin/Globulin Ratio 1.0 Amylase Lipase 1225 H Plasma Lactate Urine Source Urine Color Urine Clarity Urine pH Ur Specific [place] Urine Protein Urine Ketones Urine Blood Urine Nitrite Urine Bilirubin Urine Urobilinogen Urine Microscopic RBC Urine WBC Urine Microscopic WBC Ur Epithelial Cells Urine Bacteria Urine Glucose 10/13/18 10/13/18 10/13/18 23:10 23:10 23:10 WBC RBC Hgb Hct MCV MCH MCHC RDW Std Deviation Plt Count MPV Immature Gran % (Auto) Neut % (Auto) Lymph % (Auto) [place] % (Auto) Eos % (Auto) Baso % (Auto) Immature Gran # (Auto) Neut # (Auto) Lymph # (Auto) [place] # (Auto) Eos # (Auto) Baso # (Auto) PT 13.3 INR 0.96 PTT (Actin FS) 36.1 Sodium Potassium Chloride Carbon Dioxide Anion Gap BUN Creatinine Estimated GFR/1.73 m2 BUN/Creatinine Ratio Glucose Calcium Total Bilirubin AST ALT Alkaline Phosphatase Creatine Kinase Troponin T < 0.010 Exk-Q-Zrtwfacpofh Pept 2754 H Total Protein Albumin Globulin Albumin/Globulin Ratio Amylase Lipase Plasma Lactate Urine Source Urine Color Urine Clarity Urine pH Ur Specific [place] Urine Protein Urine Ketones Urine Blood Urine Nitrite Urine Bilirubin Urine Urobilinogen Urine Microscopic RBC Urine WBC Urine Microscopic WBC Ur Epithelial Cells Urine Bacteria Urine Glucose 10/13/18 10/14/18 10/14/18 23:10 01:58 02:07 WBC RBC Hgb Hct MCV MCH MCHC RDW Std Deviation Plt Count MPV Immature Gran % (Auto) Neut % (Auto) Lymph % (Auto) [place] % (Auto) Eos % (Auto) Baso % (Auto) Immature Gran # (Auto) Neut # (Auto) Lymph # (Auto) [place] # (Auto) Eos # (Auto) Baso # (Auto) PT INR PTT (Actin FS) Sodium Potassium Chloride Carbon Dioxide Anion Gap BUN Creatinine Estimated GFR/1.73 m2 BUN/Creatinine Ratio Glucose Calcium Total Bilirubin AST ALT Alkaline Phosphatase Creatine Kinase Troponin T Ejr-[id number]-Npsbgxlfshy Pept Total Protein Albumin Globulin Albumin/Globulin Ratio Amylase 256 H Lipase Plasma Lactate 3.4 H Urine Source CATH Urine Color YELLOW Urine Clarity CLEAR Urine pH 7.0 Ur Specific [place] 1.010 Urine Protein TRACE A Urine Ketones NEGATIVE Urine Blood 3+ A Urine Nitrite NEGATIVE Urine Bilirubin NEGATIVE Urine Urobilinogen 8 Urine Microscopic RBC 20-40 A Urine WBC 2+ A Urine Microscopic WBC 10-20 A Ur Epithelial Cells <10 Urine Bacteria 4+ Urine Glucose NEGATIVE Orders Category Date Time Status Cardiac Monitoring DIRECTED Care 10/13/18 22:44 Active Oxygen Therapy- ED Nursing DIRECTED Care 10/13/18 22:44 Active Saline Loc NOW Care 10/13/18 22:44 Active NPO Diet 10/13/18 22:45 Active CHEST-2 VIEWS [RAD] Stat Exams 10/13/18 22:44 Taken AMYLASE [CHEM] Stat Lab 10/14/18 03:03 Completed BLOOD CULTURE [BLDCUL] Stat Lab 10/14/18 01:29 Ordered CBC WITH ELECTRONIC DIFF [HEME] Stat Lab 10/13/18 23:10 Completed CK PROFILE [SP CHEM] Stat Lab 10/13/18 23:10 Completed CK PROFILE [SP CHEM] Stat Lab 10/14/18 03:31 Ordered COMPREHENSIVE METABOLIC PANEL [CHEM] Stat Lab 10/13/18 23:10 Completed LACTATE, PLASMA [CHEM] Stat Lab 10/14/18 01:58 Completed LIPASE [CHEM] Stat Lab 10/13/18 23:10 Completed PRO B-NATRIURETIC PEPTIDE Stat Lab 10/13/18 23:10 Completed PROTIME WITH INR [COAG] Stat Lab 10/13/18 23:10 Completed PTT [COAG] Stat Lab 10/13/18 23:10 Completed TROPONIN T Stat Lab 10/13/18 23:10 Completed TROPONIN T Stat Lab 10/14/18 03:31 Ordered UA NIMS W/REFLEX CULT PL [URINALYSIS] Stat Lab 10/14/18 02:07 Completed URINE CULTURE [RM] Routine Lab 10/14/18 03:14 Ordered 0.9% Sodium Chloride Inj [Ns] 1,000 ml Med 10/14/18 01:07 Discontinued IV 999 mls/hr 0.9% Sodium Chloride Inj [Ns] 1,000 ml Med 10/14/18 03:53 Active IV 999 mls/hr Aspirin Med 10/13/18 22:44 Discontinued 325 mg PO NOW ONE Lido/Juares Alk/Al&mg Hydrox [G.i. Cocktail] Med 10/13/18 22:46 Discontinued 30 ml PO NOW ONE Morphine Med 10/13/18 22:58 Discontinued 2 mg IV NOW ONE Piperacillin/Tazobactam [Zosyn] 3.375 gm Med 10/14/18 01:29 Discontinued 0.9% Sodium Chloride Inj [Ns] 50 ml IV NOW Promethazine [Phenergan] Med 10/13/18 22:58 Discontinued 25 mg IV NOW ONE Sodium Chloride 0.9% Med 10/13/18 22:58 Discontinued 10 ml INJ NOW ONE Vancomycin 1 gm/Ns Med 10/14/18 03:53 Active 1 gm in 250 ml IV NOW Abd Pain/OB <20 weeks Stat Oth 10/13/18 22:44 Ordered CP/SOB/Palp >45 yrs of Age Stat Oth 10/13/18 22:44 Ordered EKG [EKG] Stat Ther 10/13/18 22:44 Draft EKG [EKG] Stat Ther 10/14/18 03:31 Ordered patient deteriorated following consult with june, will admit patient to ICU at [facility], patient given 1500 ml bolus due to signs of fluid overload and elevated pro-BNP, pt BP MAP above 60, fluids and antibiotics started after results labs were revealed. pt lactate returned elevated and BP began to trend downward so patient will be transferred to ICU not the floor. Result Diagrams: 10/13/18 23:10 10/13/18 23:10 - REASSESSMENT Reassessment #1 Time Reassessed: 00:30 Status: improving Reassessment Comment: pt states pain and nausea are better, pt more calm Reassessment #2 Time Reassessed: 01:30 Status: unchanged Reassessment Comment: pt still no vomiting, pain under control at this time Reassessment #3 Time Reassessed: 02:30 Status: worsening Reassessment Comment: pt pain under control but patient more weak and BP trending downward - XRAY 1 XRAY Study: Chest Impression: Abnormal XRAY Interpretation: basilar pulmonary edema bilaterally - CONSULTS/PCP/HOSPITALIST Notification #1 *Consult/PCP/Hospitalist*: Dr Jara Time Discussed: 12:00 (discussed admission to floor for pancreatitis) Consult Disposition: Admit Departure - Departure Date of Disposition Decision: 10/14/18 Time of Disposition Decision: 04:40 DIAGNOSIS: Pancreatitis, Sepsis, UTI (urinary tract infection) Disposition: ADMITTED INPATIENT 09 Certified Medical Emergency: Emergent Condition: Critical Referrals and Follow-Ups: None,PCP [Primary Care Provider] - - Critical Care Note This patient required my direct & personal management of CC.: No Attestation - Physician/ ALEX Attestation Patient care was provided by Advanced Practice Provider:: Yes Advanced Practice Provider:: Brodie Mccollum Advanced Practice Provider documentation review:: The Mid-level provider documentation, treatment plan and medical decision making was reviewed by the physician who agrees with all treatment and medical decision making by the MLP. The physician spent face to face time with patient:: No Advanced Practice Provider documentation review:: Supervising physician onsite and consulted in the evaluation and care of this patient. The physician did not have a face to face encounter with the patient.
--- NOTE | 2018-10-14 05:07 | EKG Report ---
Test Performed on : 10/14/2018 04:22:39 AM Test Reason : CP Blood Pressure : / mmHG Vent. Rate : 086 BPM Atrial Rate : 086 BPM P-R Int : 170 ms QRS Dur : 120 ms QT Int : 404 ms P-R-T Axes : 043 023 -43 degrees QTc Int : 483 ms Sinus rhythm. with premature atrial complexes. Right bundle branch block T wave abnormality, consider lateral ischemia Abnormal ECG When compared with ECG of 13-OCT-2018 22:54, (Unconfirmed) premature atrial complexes. are now present Unconfirmed Result
[2018-10-14] MEDS ORDERED: MORPHINE IV PRN ×2 (05:15→06:45)
[2018-10-14] MEDS ORDERED: ZOFRAN PO PRN (05:15)
[2018-10-14] MEDS ORDERED: TYLENOL PO PRN ×3 (05:15→06:51)
[2018-10-14] MEDS ORDERED: ZOFRAN ODT PO PRN (05:17)
[2018-10-14 06:05] LABS: CK INDEX 1.3 (0.0-2.5); CK-MB 3.44 ng/mL (0.0-5.0)
[2018-10-14] MEDS ORDERED: HUMULIN R SUBQ PRN ×2 (06:45→06:51)
[2018-10-14] MEDS ORDERED: EPINEPHRINE 8 MG in D5W 250 ML IV SCH ×2 (06:45→07:00)
[2018-10-14] MEDS ORDERED: PHENERGAN IM PRN ×2 (06:45→06:51)
[2018-10-14] MEDS ORDERED: LEVOPHED 8 MG in D5 1/2 NS 250 ML IV SCH (06:45)
[2018-10-14] MEDS ORDERED: NS 1,000 ML IV SCH (06:45)
[2018-10-14] MEDS ORDERED: NORCO-5 PO PRN ×2 (06:45→06:52)
[2018-10-14] MEDS ORDERED: NS 500 ML IV PRN ×2 (06:45→06:48)
[2018-10-14] MEDS ORDERED: ZOFRAN IV PRN ×2 (06:45→06:51)
[2018-10-14] MEDS ORDERED: NORCO-10 PO PRN ×2 (06:45→06:52)
[2018-10-14] MEDS ORDERED: PITRESSIN 40 UNIT in NS 100 ML IV SCH ×2 (06:45→07:00)
[2018-10-14] MEDS ORDERED: VANCOMYCIN IV PER PHARMACY MISC SCH ×2 (06:45→07:00)
[2018-10-14] MEDS ORDERED: TYLENOL PR PRN ×2 (06:45→06:52)
--- NOTE | 2018-10-14 06:47 | Diag Imaging Result Doc PS360 ---
Portable chest x-ray - 10/13/2018 INDICATION: epigastric pain COMPARISON: 07/23/2017 FINDINGS: Lung volumes are very low. There is some trace atelectasis or infiltrate at the left lung base. Heart size and pulmonary vascularity is normal. No pneumothorax or significant pleural effusion. IMPRESSION: Nonspecific findings. Electronically signed by Mauricio Lovett 10/14/2018 6:44 AM
[2018-10-14] MEDS: LEVOPHED 8 MG in D5 1/2 NS 250 ML IV SCH (07:15)
[2018-10-14] MEDS: DUONEB (A & A) INH SCH ×5 (08:02→23:25)
[2018-10-14] MEDS ORDERED: PROTONIX IV SCH (09:00)
[2018-10-14] MEDS: PROTONIX IV SCH (09:45)
--- NOTE | 2018-10-14 10:58 | HISTORY AND PHYSICAL ---
PRIMARY CARE PHYSICIAN: Unknown. CHIEF COMPLAINT: Epigastric abdominal pain with nausea, vomiting, that began after eating chili and beans last night. HISTORY OF PRESENTING ILLNESS: This is an 87-year-old male, who presents to [facility] ER with complaints of epigastric abdominal pain and onset of nausea, vomiting prior to arriving after eating chili and beans. When he arrived to the emergency room, he also had several episodes of vomiting. Stated that the pain was severe without any relieving or exacerbating factors. His workup in the ER showed a white blood cell count of 12.4. He had an amylase of 256 and a lipase of 1225, a total bilirubin of 2.60, AST 247, ALT 99. Creatinine was 1.3. Urinalysis showed negative nitrites, but 2+ white blood cells, 4+ bacteria. He had a drop in his blood pressure in the ER and was started on a Levophed drip per protocol. So, he was admitted to the intensive care unit for further evaluation and treatment. PAST MEDICAL HISTORY: Atrial flutter versus atrial fibrillation, hypertension, hyperlipidemia, CHF and kidney stones. PAST SURGICAL HISTORY: None. FAMILY HISTORY: Reviewed and noncontributory. SOCIAL HISTORY: Currently lives with family. Denied any tobacco, alcohol or illicit drug use. ALLERGIES: He has no known drug allergies. HOME MEDICATIONS: Are being held at this time as he is NPO. LABORATORY DATA: Showed a white blood cell count of 12.4, hemoglobin of 15.2, hematocrit 46.8, platelets 180,000. PT and INR of 13.3 and 0.96. Sodium 138, potassium 4.4, chloride 102, CO2 24, BUN of 14, creatinine 1.3, glucose 142, total bilirubin of 2.60, AST of 247, ALT 99, alkaline phosphatase 92. Troponin of less than 0.010. CK of 92, proBNP of 2754, amylase 256, lipase 1225, plasma lactate of 3.4. Repeated 3 hours later at 1.6 and then again 3 hours after that at 1. Urinalysis showed negative nitrites, 2+ white blood cells, 4+ bacteria. IMAGING: Chest x-ray showed nonspecific findings. EKG: Sinus bradycardia at 59 with a right bundle-branch block. REVIEW OF SYSTEMS: Denied any fever, chills, blurred vision, dizziness, chest pain, coughing, shortness of breath. Positive for epigastric abdominal pain, nausea, vomiting. Denied any diarrhea or burning or hurting with urination. PHYSICAL EXAMINATION: VITAL SIGNS: On arrival, he had a temperature of 96.7 degrees, pulse 62, respirations 16, blood pressure 137/70, saturating 99% on room air. HEENT: Normocephalic, atraumatic. Normal ENT inspection. Oropharynx and nares are clear. EYES: Pupils are equal, round, reactive to light and accommodation. Extraocular movements are intact. NECK: Normal inspection. Normal range of motion. LUNGS: Clear to auscultation bilaterally with equal lung expansion and chest wall movement. HEART: Regular rate and rhythm. No murmurs, rubs, or gallops. He has 3+ pitting edema to left lower extremity. ABDOMEN: Soft. Nontender, nondistended. Bowel sounds are present x4 quadrants. MUSCULOSKELETAL: 5/5 strength x4 extremities. NEUROLOGICAL: The cranial nerves 2-12 appear grossly intact. ASSESSMENT: 1. An acute pancreatitis. 2. Elevated liver function tests. 3. A mild acute kidney injury. 4. Urinary tract infection. 5. Hypotension on Levophed drip per protocol PLAN: He was admitted to the intensive care unit, placed on telemetry, O2 per protocol. We are holding him nothing per oral. We will recheck an amylase and lipase in the morning. Urine culture pending. We will do ultrasound of the abdomen complete today. He was placed on vancomycin per pharmacy protocol. He was given 2 normal saline boluses in the emergency room. He was also given a dose of Zosyn. Currently on normal saline at 125 mL an hour. Also, on Levophed per protocol for hypotension. We will recheck a CBC, BMP in the a.m. also and further orders after seen by attending. Dictated by ANDREW Covarrubias for Jose Hay MD cc: ANDREW Covarrubias MD [facility]
[2018-10-14 11:07] LABS: BASO# 0.03 X1000 (0.0-0.2); BASO% 0.2 % (0.0-0.8); EOS# 0.04 X1000 (0.0-0.7); EOS% 0.2 % (0.0-10.0); HEMATOCRIT 41.8 % (42.0-52.0); HEMOGLOBIN 13.7 g/dL (14.0-18.0); IMM GRAN# 0.07 X1000 (0.0-0.04); IMM GRAN% 0.4 % (0.0-0.5); LYMPH# 3.69 X1000 (1.2-3.4); LYMPH% 18.6 % (20.5-51.1); MCH 28.7 PG (27-31); MCHC 32.8 g/dL (33-37); MCV 87.4 FL (81-99); MONO% 7.1 % (1.7-9.3); MPV 11.4 FL (7.4-10.4); NEUT# 14.62 X1000 (1.4-6.5); NEUT% 73.5 % (42.2-75.2); PLT 197 X1000 (130-400); RBC 4.78 XMIL (4.7-6.1); RDW 14.2 % (11.5-14.5); WBC 19.85 X1000 (4.8-10.8)
--- NOTE | 2018-10-14 11:10 | Diag Imaging Result Doc PS360 ---
US ABDOMEN-COMPLETE - 10/14/2018 INDICATION: acute pancreatitis COMPARISON: CT from 10/14/2012 FINDINGS: The liver is diffusely hyper echogenic compatible with fatty change. No liver masses. There are several shadowing gallstones in the gallbladder. There is gallbladder wall thickening and some trace surrounding fluid. No biliary dilation. Common bile duct measures 4 mm. Spleen size is normal. The spleen measures 11.8 x 11.7 x 3.6 cm. The pancreas is partially visible and appears normal. There is a small right renal cyst measuring 1 cm. Otherwise both kidneys are normal. Aorta, IVC, and main portal vein are patent. IMPRESSION: 1. Gallstones in the gallbladder. Gallbladder wall thickening and surrounding free fluid. Cholecystitis is suspected. Consider correlation with a HIDA scan. 2. Hyper echogenic liver compatible with diffuse fatty change. Electronically signed by Mauricio Lovett 10/14/2018 11:08 AM
[2018-10-14] MEDS ORDERED: HUMULIN R DOSE (PARKWAY) SUBQ PRN (11:16)
[2018-10-14 11:19] LABS: AGAP 10; BUN 14 mg/dL (8-22); CHLORIDE 107 mmol/L (98-107); COSMO 282; CREATININE 1.1 mg/dL (0.7-1.2); ESTIMATED GFR > 60; GLUCOSE 138 mg/dL (70-104); POTASSIUM 4.5 mmol/L (3.5-5.1); SODIUM 140 mmol/L (136-145); TCO2 23 mmol/L (25-35)
[2018-10-14 11:20] LABS: ALBUMIN 2.8 g/dL (3.5-5.0); ALKALINE PHOSPHATASE 100 U/L (32-122); CALCIUM 7.9 mg/dL (8.8-10.2); GOT 427 U/L (10-34); GPT 249 U/L (10-44); LIPASE 174 U/L (13-60)
[2018-10-14] MEDS ORDERED: PHENERGAN IV PRN (12:04)
[2018-10-14] MEDS: LR 1,000 ML IV SCH ×2 (12:39→21:00)
--- NOTE | 2018-10-14 14:58 | HISTORY AND PHYSICAL ---
ADDENDUM REPORT He came in with abdominal pain, nausea, and vomiting may be. In any case, he was found to have pancreatitis. He drinks very intermittently maybe, 1 or 2 beers a couple times a week. It does not sound like he drinks daily. He does have a history of CHF. His workup in the ER was consistent with pancreatitis. Lipase was extremely elevated. Lactate was normal. Repeat lipase has come down. His AST and ALT, however, are elevated 247, went up to 427, ALT from 99 to 249, and his T bilirubin is going up. All of those consistent with choledocholithiasis and gallstone pancreatitis. His white count has jumped up too. He is also septic with some degree of shock. He is on Levophed, although they are being able to wean it slowly. In any case, the patient has biliary sepsis or cholecystitis, choledocholithiasis, and sepsis. We will continue hydration, broad-spectrum antibiotics, which I will use Zosyn. He has been on vancomycin and Zosyn at least started yesterday. He is not maintained on Zosyn. In any case, he is overall improved, but he will likely need an ERCP and possibly a laparoscopic cholecystectomy. We will continue to follow closely. At this point, I do not think we need to transfer him just yet, but we will continue to monitor closely. cc: Jose Hay MD
[2018-10-14] MEDS: ZOSYN 3.375 GM in NS 50 ML IV SCH (19:08)
[2018-10-14] MEDS: MORPHINE IV PRN (22:08)
[2018-10-15] MEDS: ZOSYN 3.375 GM in NS 50 ML IV SCH ×5 (00:19→23:21)
[2018-10-15] MEDS ORDERED: VANCOMYCIN 1,700 MG in NS 250 ML IV SCH (01:00)
[2018-10-15] MEDS: DUONEB (A & A) INH SCH ×2 (03:25→08:26)
[2018-10-15] MEDS: LR 1,000 ML IV SCH ×3 (04:40→16:32)
--- NOTE | 2018-10-15 05:11 | GENERAL SURGERY CONSULTATION ---
DATE: 10/14/2018 REQUESTING PHYSICIAN: Jose Hay MD. CONSULT CONCERNING: Pancreatitis, possibly biliary origin. HISTORY OF PRESENT ILLNESS: An 87-year-old male who presented to the emergency department at [facility] with complaints of epigastric pain and new onset nausea and vomiting. He was admitted, started on IV fluid resuscitation, was found to be hypotensive. So he had to be started on Levophed. He was transferred to the ICU. Now in the ICU still slight amount of Levophed, but is doing relatively okay. At this moment, he is not complaining of abdominal pain. He did have imaging that included an ultrasound that showed possibility of cholecystitis. He also had fatty liver disease. His common bile duct was not dilated. I was asked to weigh an opinion. PAST MEDICAL HISTORY: 1. Atrial flutter versus atrial fibrillation. 2. Hypertension. 3. Hyperlipidemia. 4. Congestive heart failure. 5. History of kidney stones. PAST SURGICAL HISTORY: None. FAMILY HISTORY: Reviewed with the patient and noncontributory. SOCIAL: Social alcohol. ALLERGIES: None. HOME MEDICATIONS: Reviewed. MAR also reviewed. Of note, he is on Levophed and Zosyn. REVIEW OF SYSTEMS: A full 10 point review of systems obtained and negative as specified in HPI. PHYSICAL EXAMINATION: Vital Signs: Patient is currently afebrile. Blood pressure is 100 systolic on Levophed. Pulse 71, respiratory rate 16, O2 saturation 100% on 2 L nasal cannula. General: No acute distress. Alert, interactive, male, looks stated age. HEENT: Normocephalic, atraumatic. Pupils equal, round, reactive to light. Mucous membranes moist. Oropharynx benign. Neck: Supple. Trachea midline. Cardiovascular: Regular rate and rhythm. Lungs: Grossly clear. Abdomen: Soft, nontender, nondistended at this time. Extremities: Moves all extremities. Neurologic: Grossly intact. Skin: No signs of jaundice. Vascular: All extremities perfused. LABORATORY: White blood cell count 19, hematocrit 41, platelet count 197,000. Bilirubin 3.9, AST 427, ALT 249, alkaline phosphatase is normal. Lipase 174, where previously it was 1225. IMAGING: With ultrasound noted above. ASSESSMENT AND PLAN: An 87-year-old with epigastric pain. Epigastric pain. At this time, the patient seems to be clinically improving as far as pain. He is still on Levophed. At this point, we recommend continued resuscitation and IV antibiotics. His bilirubin has gone up, and his AST and ALT had gone up. There is concern that he does have choledocholithiasis. We will need to continue to resuscitate him. He may need ERCP first for the development of possible cholangitis, but again the patient does not complain any pain and if he seems improved and can get off pressors, we will potentially consider laparoscopic cholecystectomy if we think he can medically tolerate it, may need a biopsy of the liver at the same time. cc: Neel Disla MD
[2018-10-15] MEDS: LEVOPHED 8 MG in D5 1/2 NS 250 ML IV SCH (06:28)
[2018-10-15 07:07] LABS: BASO# 0.02 X1000 (0.0-0.2); BASO% 0.2 % (0.0-0.8); EOS# 0.13 X1000 (0.0-0.7); EOS% 1.3 % (0.0-10.0); HEMATOCRIT 41.2 % (42.0-52.0); IMM GRAN# 0.02 X1000 (0.0-0.04); IMM GRAN% 0.2 % (0.0-0.5); LYMPH# 0.99 X1000 (1.2-3.4); LYMPH% 9.7 % (20.5-51.1); MCH 27.8 PG (27-31); MCHC 31.6 g/dL (33-37); MCV 88.2 FL (81-99); MONO# 0.93 X1000 (0.11-0.59); MONO% 9.1 % (1.7-9.3); MPV 10.6 FL (7.4-10.4); NEUT# 8.08 X1000 (1.4-6.5); NEUT% 79.5 % (42.2-75.2); PLT 158 X1000 (130-400); RBC 4.67 XMIL (4.7-6.1); RDW 14.5 % (11.5-14.5); WBC 10.17 X1000 (4.8-10.8)
[2018-10-15 07:12] LABS: AGAP 11; AMYLASE 23 U/L (20-200); BUN 13 mg/dL (8-22); CALCIUM 8.4 mg/dL (8.8-10.2); CHLORIDE 109 mmol/L (98-107); COSMO 285; ESTIMATED GFR > 60; GLUCOSE 130 mg/dL (70-104); LIPASE 12 U/L (13-60); SODIUM 142 mmol/L (136-145); TCO2 22 mmol/L (25-35)
[2018-10-15] MEDS: MORPHINE IV PRN ×2 (07:37→13:24)
[2018-10-15] MEDS: PROTONIX IV SCH ×2 (07:37→08:49)
[2018-10-15] MEDS ORDERED: NEO-SYNEPHRINE IV ONE (09:08)
[2018-10-15] MEDS ORDERED: CARDIZEM IV ONE ×2 (09:08→09:09)
[2018-10-15] MEDS ORDERED: NEO-SYNEPHRINE 50 MG in NS 250 ML IV SCH (09:15)
[2018-10-15] MEDS: CARDIZEM 125/NS 125 MG/125 ML IVPB IV SCH ×2 (09:38→20:53)
--- NOTE | 2018-10-15 09:51 | EKG Report ---
Test Performed on : 10/15/2018 09:07:52 AM Test Reason : change in rhythm Blood Pressure : / mmHG Vent. Rate : 152 BPM Atrial Rate : 234 BPM P-R Int : 000 ms QRS Dur : 116 ms QT Int : 320 ms P-R-T Axes : 000 075 -79 degrees QTc Int : 508 ms Atrial fibrillation. with rapid ventricular response. Incomplete right bundle branch block Marked ST abnormality, possible anterior subendocardial injury Abnormal ECG When compared with ECG of 14-OCT-2018 04:22, (Unconfirmed) Atrial fibrillation. has replaced Sinus rhythm. Vent. rate has increased BY [address] more depressed in Anterior leads Inverted T waves have replaced nonspecific T wave abnormality in Inferior leads Unconfirmed Result
--- NOTE | 2018-10-15 10:55 | GENERAL SURGERY PROGRESS NOTE ---
DATE: 10/15/2018 SUBJECTIVE: Patient is resting comfortably. Nursing staff reports no major issues. OBJECTIVE: Vital signs: Patient is currently afebrile. His blood pressure is 140 systolic. He is still on Levophed, although, I think it is being weaned off. General: No acute distress. HEENT: Normocephalic, atraumatic. Pupils equal, round, reactive to light. Mucous membranes are moist. Oropharynx benign. Neck: Supple. Trachea midline. Cardiovascular: Regular rate and rhythm. Lungs: Grossly clear. Abdomen: Soft, nontender, and nondistended. Extremities: Moves all extremities. Neurologic: Grossly intact. Skin: No signs of jaundice. Vascular: All extremities perfused. LABORATORY: Pending this morning. ASSESSMENT AND PLAN: An 87-year-old possible choledocholithiasis. Choledocholithiasis. At this time, patient seems to be resting well. Continue resuscitation. We will follow up with morning labs and make further determination on surgical intervention at that point. The patient is on antibiotics. Hopefully, we can wean off the Levophed. cc: Neel Disla MD
[2018-10-15 11:13] LABS: ALBUMIN 2.4 g/dL (3.5-5.0); TOTAL BILIRUBIN 4.1 mg/dL (0.20-1.00); TOTAL PROTEIN 5.1 g/dL (6.3-8.3)
--- NOTE | 2018-10-15 11:50 | PROGRESS NOTE ---
DATE: 10/15/2018 SUBJECTIVE: Patient has no major complaints, but he has developed atrial fibrillation this morning. He has persistent hypotension on pressors. OBJECTIVE: Vital signs: Blood pressure is 96/65. Heart rate is anywhere between 110 to 140. Respiratory rate is 16, temperature 97.8 degrees, 100% on 2 L. Cardiovascular: He is tachy and irregular. Pulmonary: Bilateral breath sounds clear to auscultation, somewhat diminished at bases. GI: Soft, nontender, nondistended. Bowel sounds were positive. LABORATORY DATA: White count is 10, hemoglobin and hematocrit 13 and 41, platelets 158,000. CMP was normal. Lipase is now normal at 12 and was 174. Urine culture is growing out gram-negative carmencita. PROBLEM LIST: 1. Gallstone pancreatitis with what is felt to be biliary sepsis. We will continue nothing by mouth status. I am not sure if we could try to give him a little bit of clears. That will be at the discretion of Dr. Disla because his pancreatitis has resolved. He still may have some cholecystitis. I will at least give him some ice chips. 2. Cholecystitis with possible choledocholithiasis. We will continue antibiotics and resuscitation, and follow. He will need likely a laparoscopic cholecystectomy, IOC, and possibly ERCP pending intraoperative cholangiogram. Findings at the discretion of Dr. Disla and obviously need to be off pressors, which is the next problem. 3. Biliary septic shock. We will continue antibiotics, and volume resuscitation, and follow. 4. Atrial fibrillation with rapid ventricular response is likely secondary to the fact that he has not been on any of his home medications. He was just diagnosed with that recently. I have initiated a Cardizem drip. We will get a Cardiology evaluation and see how he does. 5. Disposition pending clinical status. He is still critically ill, 35 minute critical care time, and follow closely for atrial fibrillation with rapid ventricular response, shock, vasopressors, and intravenous Cardizem. cc: Jose Hay MD
[2018-10-15] MEDS ORDERED: NS 250 ML ONE (13:30)
[2018-10-15] MEDS ORDERED: LANOXIN IV ONE (13:48)
[2018-10-15] MEDS ORDERED: LASIX IV SCH (14:00)
--- NOTE | 2018-10-15 14:15 | CARDIOLOGY CONSULTATION ---
DATE: 10/15/2018 REASON FOR CONSULT: Cardiology was consulted for atrial fibrillation, rapid ventricular rate. Patient is admitted with biliary sepsis, cholecystitis. HISTORY OF PRESENT ILLNESS: This 87-year-old gentleman presented to the hospital with epigastric abdominal discomfort associated with nausea and vomiting after eating chili and beans. He came to the emergency room. He has had significant vomiting as well. In the ER he had a white count which was 12.4, amylase 256, lipase 1,225, total bilirubin of 2.6, AST 247, ALT 99, creatinine 1.3. The patient was started on Levophed drip and protocol and subsequently admitted. General surgery was consulted. In addition, patient went into atrial fibrillation with rapid ventricular rate and has a history of atrial fibrillation. He is on Francis-Synephrine and Cardizem drip. He is currently NPO. He does not complain of chest pain. He says he feels a little bit better. Has abdominal discomfort ongoing. REVIEW OF SYSTEMS: Cardiovascular System: There is no chest pain. There is no shortness of breath. system: No dysuria or hematuria. GI System: As above. Respiratory system: No cough or hemoptysis. PAST MEDICAL HISTORY: 1. Atrial fibrillation. 2. Hypertension. 3. Hyperlipidemia. 4. Sleep apnea. 5. In the past he converted to sinus rhythm with amiodarone. He was noted to be in atrial fibrillation in 2017. MEDICATIONS: Home medications had included amiodarone 200 mg a day, acetaminophen, metoprolol 25 mg, enteric-coated aspirin, Lasix, simvastatin 40. Current medications include Cardizem drip, subcutaneous Lovenox for DVT prophylaxis, insulin as required, Ringer lactate, morphine, Protonix, piperacillin, tazobactam, IV antibiotics, Francis-Synephrine drip. ALLERGIES: He is not known to be allergic to any medication. SOCIAL HISTORY: He lives in [place]. Denies tobacco or alcohol abuse. PHYSICAL EXAMINATION: Vital Signs: Blood pressure currently 111/65. Cardiovascular system: Atrial fibrillation noted. First and second heart sounds were heard. There is no S3 gallop. Respiratory System: Distant breath sounds. Abdomen: Tender. Bowel sounds heard. Central nervous system: Alert. Was moving all 4 extremities. Extremities: Examination of extremities, trace edema. LABORATORY EXAMINATION: Revealed currently WBC 10.17, hemoglobin 13.0, hematocrit 41, platelet count of 158,000. Sodium 142, potassium 4.0, BUN 13, and creatinine 1.0. His total bilirubin is increased to 4.10, AST is lower at 198, ALT lower at 175. Cardiac enzymes negative. Abdominal ultrasound: Gallstones in the gallbladder, gallbladder thickening, surrounded with free fluid; cholecystitis suspected. Chest x-ray: Nonspecific findings. ASSESSMENT AND PLAN: 1. Mr. Byron Cedillo is an 87-year-old gentleman with history of hypertension, palpitations, paroxysmal atrial fibrillation, hyperlipidemia. He is admitted with abdominal discomfort. Has been evaluated by general surgery. Patient has likely choledocholithiasis. He is currently NPO. 2. As far as atrial fibrillation is concerned, he has abnormal liver function tests. Amiodarone has been discontinued. He is on Cardizem drip and continues to have heart rates 113 to 133. RECOMMENDATIONS: 1. Currently we will continue with the IV Cardizem given that he is NPO. 2. We will add digoxin IV as well to his medical regimen, 0.25 mg IV now and 0.125 mg IV daily. 3. His cardiac enzymes are negative. 4. His last echocardiogram in 2017 revealed an ejection fraction of 70%. We will get an echocardiogram to re-evaluate his systolic function as well. Thank you for the consult. We will follow hospital course. cc: Thompson Otoole MD
--- NOTE | 2018-10-15 14:56 | Diag Imaging Result Doc PS360 ---
EXAM: CHEST-PORTABLE HISTORY: PICC Line Placement TECHNIQUE: Portable chest COMPARISON: 09/14/2018 FINDINGS: Interval placement of a left-sided PICC line. Tip overlies the distal superior vena cava. Poor inspiratory effort. Heart remains mildly prominent. Mild central vascular distention. Questionable small infiltrate in the lower right lung. IMPRESSION: Left-sided PICC line in good position. Electronically signed by Delon Keller 10/15/2018 2:54 PM
[2018-10-15] MEDS ORDERED: STERILE WATER INJ. INJ ONE (16:18)
[2018-10-15] MEDS ORDERED: CATHFLO IV ONE (16:18)
--- NOTE | 2018-10-15 16:19 | ECHO REPORT ---
ORDER DATE: 10/14/2018 ECHOCARDIOGRAPHIC MEASUREMENTS: 1. Left ventricular end-diastolic diameter 5.1. 2. End-systolic 3.1. 3. Septal thickness 1.3. 4. Posterior wall thickness 1.3. 5. Aortic root 3.3. 6. Left atrium 4.9. SUMMARY: 1. Technically difficult study due to limited acoustic window quality. 2. Aortic valve is trileaflet and demonstrates sclerotic changes, but adequate opening on 2- dimensional images. Peak gradient across the aortic valve is approximately 10 mmHg. There is trace aortic regurgitation. Heavy mitral annular calcification is demonstrated posteriorly. There is very mild mitral regurgitation. Tricuspid and pulmonic valves are without evidence of structural abnormality with mild tricuspid regurgitation. Estimated systolic PA pressure by Doppler is 70 to 75 mmHg suggesting moderate to severe pulmonary hypertension. The aortic root is normal in size. 3. Normal left ventricular chamber size with mild concentric left hypertrophy is demonstrated. Estimated left ventricular ejection fraction appears to be at least 65%. No obvious wall motion abnormality can be appreciated. Left atrium is moderately enlarged. The right atrium is mildly enlarged. The right ventricle is normal in size with grossly preserved right ventricular systolic function. 4. No pericardial effusion. 5. Appearance of inferior vena cava suggests elevated central venous pressure. cc: MD Jose Morillo MD
[2018-10-15] MEDS ORDERED: NEURONTIN PO ONE (18:03)
[2018-10-15] MEDS ORDERED: NEURONTIN PO SCH (21:00)
[2018-10-15] MEDS: XOPENEX NEB INH SCH (21:45)
[2018-10-15] MEDS ORDERED: STERILE WATER INJ. ONE (23:18)
[2018-10-16] MEDS: LR 1,000 ML IV SCH ×3 (00:48→22:15)
[2018-10-16] MEDS: LASIX IV SCH ×2 (01:48→14:31)
[2018-10-16] MEDS: XOPENEX NEB INH SCH ×4 (02:57→21:00)
[2018-10-16] MEDS: LOVENOX SUBQ SCH (05:25)
[2018-10-16] MEDS: ZOSYN 3.375 GM in NS 50 ML IV SCH ×3 (05:25→18:09)
[2018-10-16 06:41] LABS: BASO# 0.02 X1000 (0.0-0.2); BASO% 0.2 % (0.0-0.8); EOS% 2.8 % (0.0-10.0); HEMATOCRIT 45.2 % (42.0-52.0); HEMOGLOBIN 14.1 g/dL (14.0-18.0); IMM GRAN# 0.01 X1000 (0.0-0.04); IMM GRAN% 0.1 % (0.0-0.5); LYMPH# 1.55 X1000 (1.2-3.4); LYMPH% 14.6 % (20.5-51.1); MCHC 31.2 g/dL (33-37); MCV 86.6 FL (81-99); MONO# 1.06 X1000 (0.11-0.59); NEUT# 7.71 X1000 (1.4-6.5); NEUT% 72.3 % (42.2-75.2); PLT 195 X1000 (130-400); RBC 5.22 XMIL (4.7-6.1); RDW 14.6 % (11.5-14.5); WBC 10.65 X1000 (4.8-10.8)
[2018-10-16 07:03] LABS: AGAP 12; ALBUMIN 2.3 g/dL (3.5-5.0); ALKALINE PHOSPHATASE 146 U/L (32-122); BUN 11 mg/dL (8-22); CALCIUM 8.6 mg/dL (8.8-10.2); CHLORIDE 101 mmol/L (98-107); COSMO 276; ESTIMATED GFR > 60; GLUCOSE 89 mg/dL (70-104); GOT 109 U/L (10-34); GPT 141 U/L (10-44); POTASSIUM 3.7 mmol/L (3.5-5.1); SODIUM 139 mmol/L (136-145); TCO2 26 mmol/L (25-35); TOTAL PROTEIN 5.7 g/dL (6.3-8.3)
--- NOTE | 2018-10-16 07:43 | Diag Imaging Result Doc PS360 ---
CHEST-PORTABLE - 10/16/2018 INDICATION: dyspnea COMPARISON: 10/15/2018 FINDINGS: Stable trace bilateral pleural effusions. No infiltrates or edema. Heart size is top normal. Stable left PICC line. IMPRESSION: Trace bilateral pleural effusions. No change from prior. Electronically signed by Mauricio Lovett 10/16/2018 7:41 AM
[2018-10-16] MEDS: LANOXIN IV SCH (08:54)
[2018-10-16] MEDS: PROTONIX IV SCH (08:54)
[2018-10-16] MEDS: NEURONTIN PO SCH ×2 (08:55→20:33)
[2018-10-16] MEDS: CARDIZEM 125/NS 125 MG/125 ML IVPB IV SCH (08:56)
[2018-10-16] MEDS ORDERED: LANOXIN PO SCH (09:00)
--- NOTE | 2018-10-16 10:57 | GENERAL SURGERY PROGRESS NOTE ---
DATE: 10/16/2018 SUBJECTIVE: Patient is doing okay. He was transitioned over to Francis-Synephrine and had to be put on Cardizem for atrial fibrillation with RVR. The patient is not complaining of abdominal pain. Nursing staff reports that they just had to change some of his medications. No other issues. OBJECTIVE: Vital Signs: The patient's temp is 98.3 degrees, blood pressure 98/57, pulse rate irregularly irregular, on 2 L nasal cannula saturating 98%. General: No acute distress. Resting comfortably. HEENT: Normocephalic, atraumatic. Pupils equal, round, reactive to light. There is some scleral icterus noted. Mucous membranes moist. Oropharynx benign. Neck: Supple. Trachea midline. Cardiovascular: Irregularly irregular. Lungs: Grossly clear. Abdomen: Soft. Essentially nontender at this point. Extremities: Moves all extremities. Neurologic: Grossly intact. Skin: Some mild jaundice. Vascular: All extremities perfuse. LABORATORY: From yesterday, white blood cell count is 10, hematocrit 41, platelet count 158,000. Bilirubin is up to 4.1. AST and ALT are actually decreasing. Alkaline phosphatase is normal. Lipase is trending down. ASSESSMENT AND PLAN: This is an 87-year-old with possible choledocholithiasis. Choledocholithiasis. At this time, the patient is resting but he is on Francis-Synephrine and Cardizem. Not an ideal surgical candidate at this moment. We will need to continue to resuscitate him. The patient may actually need ERCP 1st and since we do not have ERCP coverage, may need to consider transfer to [place] for evaluation. May also need to consider a CT scan to see if there is any other etiology explaining his elevated bilirubin but at this point, continue resuscitation. We will need to hold off on surgery until he is better resuscitated. I will continue to follow. cc: Neel Disla MD
[2018-10-16] MEDS ORDERED: CARDIZEM PO SCH ×2 (12:00→13:00)
--- NOTE | 2018-10-16 12:36 | PROGRESS NOTE ---
DATE: 10/16/2018 SUBJECTIVE: The patient has no focal complaints. Seems to be doing a bit better. OBJECTIVE: Blood pressure is 101/63, heart rate in the 50s right now, and he has converted. Respiratory 16, temp 97.6. Cardiovascular: Regular rate and rhythm. Pulmonary: Bilateral breath sounds. Clear to auscultation. GI: Soft, nontender, nondistended. Bowel sounds are positive. He has no pain in his right upper quadrant. LABORATORY DATA: White count 10, hemoglobin and hematocrit 14 and 45, platelets 195,000. AST and ALT are down to 109 and 141. His T bilirubin is down to 3.5; it was 4.1 yesterday and 3.9 the day before, so that does seem to be improving. PROBLEM LIST: 1. Biliary sepsis. We are weaning him off of his pressors. He is on antibiotics. We will continue to follow. He seems to be doing okay all things considered. 2. Septic shock. He seems to be resolving. Continue to monitor closely. We are weaning pressors as we speak. 3. Gallstone pancreatitis. He presented with pancreatitis. He has gallstones. He has choledocholithiasis. I do think he will essentially need a lap choly, but right now I agree with surgery. He is a bit unstable for major surgery, although I think he probably will need treatment. We will go ahead and progress with a CT since he has off pressors her soon to be hopefully off pressors. I think we can advance his diet because he really has not had anything to eat in several days and his pancreatitis has resolved. 4. Chronic obstructive pulmonary disease appears to be stable. Continue current treatments. He is on levalbuterol. 5. Atrial fibrillation with rapid ventricular response. He is currently on Digoxin. I am going to add low-dose Cardizem and see how he does with that. I think part of the issue of his atrial fibrillation with RVR is that he was sick on pressors, but also he had not been getting his regular medications. He qualifies for long-term anticoagulation, but we are not doing that at this point. Obviously, because of his concurrent issues. cc: Jose Hay MD
--- NOTE | 2018-10-16 12:38 | Extremity Venous Study ---
Venous U/S Left Leg - 10/15/2018 INDICATION: swelling TECHNIQUE: COMPARISON: None FINDINGS: The veins of the left leg are fully compressible. There is normal color and pulse wave Doppler signal. No mass or fluid collection. IMPRESSION: Negative for venous thrombosis. Electronically signed by Mauricio Lovett 10/16/2018 12:36 PM
--- NOTE | 2018-10-16 14:21 | Diag Imaging Result Doc PS360 ---
EXAM: CT ABD/PELVIS W/PO AND IV CON HISTORY: gallstone pancreatitis TECHNIQUE: Routine with oral and IV contrast. COMPARISON: 10/14/2012 FINDINGS: There is cardiomegaly. There are bilateral pleural effusions and bibasilar airspace disease. There is cholelithiasis. No CT evidence for cholecystitis. Correlate with gallbladder ultrasound as desired clinically. The liver, spleen, pancreas, and adrenal glands appear normal. There is a small hiatal hernia. There is no free air, or bowel distention. There is a Shin catheter with an air-fluid level within the bladder. There is trace free fluid within the pelvis. There is diverticulosis. No evidence for diverticulitis. The appendix is not identified and is surgically absent per history. No adenopathy. Mild atherosclerotic calcification. Prostatectomy. There is moderate lumbar spondylosis. Minimal soft tissue stranding about the pancreatic head and left anterior pararenal space. This may represent mild pancreatitis. No pseudocyst. Portal vein and splenic vein are patent. Correlate clinically. IMPRESSION: 1.Mild soft tissue stranding about the pancreatic head and left anterior pararenal space may indicate mild pancreatitis. Correlate clinically. 2.Cholelithiasis. 3.Bibasilar airspace disease and bilateral pleural effusions. 4.Prostatectomy with Shin catheter in place. This exam was performed using automated exposure control, adjustment of mA or kV according to patient size, and/or use of iterative reconstruction technique. Electronically signed by Annabel Vicente 10/16/2018 2:19 PM
--- NOTE | 2018-10-16 17:10 | EKG Report ---
Test Performed on : 10/16/2018 11:13:05 AM Test Reason : converted to SR Blood Pressure : / mmHG Vent. Rate : 056 BPM Atrial Rate : 056 BPM P-R Int : 108 ms QRS Dur : 140 ms QT Int : 502 ms P-R-T Axes : 049 035 -55 degrees QTc Int : 484 ms Sinus bradycardia. Ventricular pre-excitation, WPW pattern type A Abnormal ECG When compared with ECG of 15-OCT-2018 09:07, (Unconfirmed) Sinus rhythm. has replaced Atrial fibrillation. Vent. rate has decreased BY 96 BPM [id number]-Szipv is now present Confirmed by Tariq Morales MD ([id number]) on 10/21/2018 11:18:27 PM
[2018-10-16] MEDS ORDERED: ALBUMIN 25% IV ONE (17:20)
[2018-10-16] MEDS: LOPRESSOR PO SCH ×2 (17:41→22:53)
[2018-10-16] MEDS: MORPHINE IV PRN (20:34)
[2018-10-17] MEDS: ZOSYN 3.375 GM in NS 50 ML IV SCH ×5 (00:06→23:22)
[2018-10-17] MEDS: XOPENEX NEB INH SCH ×4 (04:35→22:27)
[2018-10-17] MEDS: LOPRESSOR PO SCH ×4 (05:42→23:22)
[2018-10-17] MEDS: LOVENOX SUBQ SCH (05:42)
[2018-10-17 06:58] LABS: BASO# 0.02 X1000 (0.0-0.2); BASO% 0.3 % (0.0-0.8); EOS# 0.27 X1000 (0.0-0.7); EOS% 4.4 % (0.0-10.0); HEMATOCRIT 39.2 % (42.0-52.0); HEMOGLOBIN 12.4 g/dL (14.0-18.0); IMM GRAN# 0.01 X1000 (0.0-0.04); IMM GRAN% 0.2 % (0.0-0.5); LYMPH# 0.98 X1000 (1.2-3.4); LYMPH% 15.9 % (20.5-51.1); MCH 27.5 PG (27-31); MCHC 31.6 g/dL (33-37); MCV 86.9 FL (81-99); MONO# 0.74 X1000 (0.11-0.59); MPV 11.1 FL (7.4-10.4); NEUT# 4.14 X1000 (1.4-6.5); NEUT% 67.2 % (42.2-75.2); PLT 143 X1000 (130-400); RBC 4.51 XMIL (4.7-6.1); RDW 14.4 % (11.5-14.5); WBC 6.16 X1000 (4.8-10.8)
[2018-10-17] MEDS: LR 1,000 ML IV SCH ×2 (07:20→18:44)
[2018-10-17 07:31] LABS: AGAP 15; ALBUMIN 2.5 g/dL (3.5-5.0); ALKALINE PHOSPHATASE 106 U/L (32-122); BUN 12 mg/dL (8-22); CALCIUM 8.6 mg/dL (8.8-10.2); CHLORIDE 100 mmol/L (98-107); COSMO 279; CREATININE 0.9 mg/dL (0.7-1.2); ESTIMATED GFR > 60; GLUCOSE 66 mg/dL (70-104); GOT 44 U/L (10-34); GPT 76 U/L (10-44); MAGNESIUM 1.8 mg/dL (1.5-2.7); POTASSIUM 3.5 mmol/L (3.5-5.1); SODIUM 141 mmol/L (136-145); TCO2 26 mmol/L (25-35); TOTAL PROTEIN 5.3 g/dL (6.3-8.3)
--- NOTE | 2018-10-17 07:36 | CARDIOLOGY PROGRESS NOTE ---
DATE: 10/16/2018 CHIEF COMPLAINT: Abdominal pain, irregular heartbeat. SUBJECTIVE: Mr. Cedillo has converted from atrial fibrillation to sinus rhythm. He is feeling better today. His abdominal pain has improved. His heart rate right now is normal. He generally feels better. He was admitted to the hospital on 07/14/2018, which is 3 days ago, at about 10:40 p.m. with abdominal pain and at that time, he was found to be in sinus rhythm. Subsequently, he went into atrial fibrillation. His CAT scan from today shows mild soft tissue stranding about the pancreatic head and left anterior pararenal space, may indicated mild pancreatitis. There is cholelithiasis, and there is bibasilar space disease and bilateral pleural effusions. OBJECTIVE: Vital Signs: Blood pressure 99.60, temperature 97.4, pulse 64, respirations 19. General: He is awake, alert and oriented in no distress. HEENT: Unremarkable. Chest: Diminished breath sounds at bases. Heart: Heart sounds are regular and rhythmic. There is a systolic murmur over the aortic area. Abdomen: Slightly tender over the epigastrium. Extremities: Show trace edema, good pulses. Neurologic: Follows commands. Moves all extremities. LABORATORY DATA: His white count has dropped to 10,650, hemoglobin is normal at 14.1. Sodium 139, potassium 37, BUN 11, creatinine 1.0. His bilirubin is down to 3.5. AST down to 109, ALT 141. Albumin is 2.3. IMPRESSION: 1. A patient who presented with acute pancreatitis. This is probably gallstone pancreatitis because of the finding of cholelithiasis. 2. Atrial fibrillation with rapid response. 3. The patient with a history of hypertension. 4. History of abnormal EKG, negative stress test in 2016. No previous coronary heart disease. He has some suspicion for apical hypertrophic cardiomyopathy. 5. Hyperlipidemia. 6. History of chest pain in the past. RECOMMENDATIONS: At this point in time, will try to resume beta blockers at low dose. We will see how he does. From my perspective, I think this patient should be able to withstand surgery. I will talk to Dr. Disla about it. Laparoscopic cholecystectomy is indicated in his case. Will follow him. cc: Oswald Selby MD
[2018-10-17] MEDS: PROTONIX IV SCH (09:04)
[2018-10-17] MEDS: NEURONTIN PO SCH ×2 (09:04→20:59)
[2018-10-17] MEDS: LASIX IV SCH (09:05)
[2018-10-17] MEDS: LANOXIN IV SCH ×2 (09:06→09:16)
--- NOTE | 2018-10-17 11:10 | PROGRESS NOTE ---
DATE: 10/17/2018 SUBJECTIVE: This patient seems to be doing better. He is not complaining of abdominal pain. He has been passing gas, but no bowel movements. We have started this patient on a liquid diet. Cardiology Department following this patient closely as well as Surgery Department. This patient is no longer on pressors, atrial fibrillation RVR resolved. This patient has probably choledocholithiasis, AST and ALT trending down but alkaline phosphatase going up slowly. Probably, this patient will need ERCP first, and then surgery but since we do not have ERCP coverage probably we need to transfer this patient to [facility]. I will wait for the final recommendation of the surgeon and Cardiology Department so I can call [facility] for evaluation. This patient is stable at this moment. OBJECTIVE: Vital Signs: Temperature 97.6 degrees, pulse 60, respiratory rate 26, blood pressure 104/52, and oxygen saturation 100% on 2 L of nasal cannula. HEENT: Head normocephalic. No trauma. PERRLA. Neck: Supple. No JVD. No masses. Central trachea. Chest : There is some crepitus at the bases. Clear to clear to auscultation. No wheezing. No rales. Abdomen: Soft. Nontender. Mildly distended. Positive bowel sounds. No signs of peritoneal irritation. Extremities: Trace pedal edema. No clubbing. No cyanosis. Neurological: The patient is alert and oriented x3. He is really hard of hearing. LABORATORY: WBC 10.6, hemoglobin 14.1, hematocrit 45.2, and platelets 195,000. Sodium 139, potassium 3.7, chloride 101, bicarbonate 26, BUN 11, creatinine 1, glucose 89, and calcium 8.6. AST 109. ALT 141, alkaline phosphatase 146, and albumin 2.3. ASSESSMENT AND PLAN: 1. Septic shock likely coming from the biliary space. He is no longer on pressors. We will continue with antibiotics. WBC is normal. He seems to be doing okay all things considered. We have placed this patient on a liquid diet. He is not complaining of abdominal pain. No fever. No chills. Surgery Department following this patient. 2. Gallstone pancreatitis. Lipase level upon admission was 1225, and then a couple of days later was 12. We will continue with the same management. We will follow the recommendations of Surgery Department. We did a CT scan of the abdomen and pelvis that showed mild soft tissue stranding about the pancreatic head and left anterior pararenal space may indicate mild pancreatitis. Cholelithiasis, bibasilar airspace disease and bilateral pleural effusion, and prostatectomy with Shin catheter in place. 3. Bilateral pleural effusion. This patient has been placed on furosemide IV 40 mg daily. He has also been on lactate ringer 75 mL/h. Of course, he was NPO. I will decrease the lactate ranger to 30 mL/h, and I will continue with liquid diet to see how he does. Today, he has a negative balance of at least 1.3 L. 4. Chronic obstructive pulmonary disease, not in exacerbation. Continue with the same management. 5. Atrial fibrillation with RVR. He is currently on digoxin, and also he is on Lopressor low dose every 6 hours. His blood pressure has been borderline low in the 100s and 90s mostly. We are holding these medications if the heart rate is below 55 BPM, or if systolic blood pressure less than 105. Probably, he will need to be on long-term anticoagulation, but since probably this patient will have surgery and probably an ERCP we are holding this treatment. 6. Hyperlipidemia. I am aware we are holding the simvastatin due to elevated LFTs. CRITICAL CARE TIME: 35 minutes. cc: Ebenezer Lambert MD MTDD
--- NOTE | 2018-10-17 13:18 | GENERAL SURGERY PROGRESS NOTE ---
DATE: 10/17/2018 SUBJECTIVE: Patient doing better. He is off of pressors. He seems to be doing okay. Nursing staff reports no major issues. OBJECTIVE: Vital Signs: Patient is currently afebrile. His vital signs are stable. General Exam: No acute distress. HEENT: Normocephalic, atraumatic. Pupils equal, round, reactive to light. Mucous membranes moist. Oropharynx benign. Neck: Supple. Trachea midline. Cardiovascular: Regular rate and rhythm. Lungs: Grossly clear. Abdomen: Soft, nontender at this point. Extremities: Moves all extremities. Neurologic: Grossly intact. Skin: No signs of jaundice. Vascular: All extremities perfused. LABORATORY: Laboratory from this morning: White blood cell count is normal, hematocrit is 39, platelet count 143. Bilirubin is 2.3. IMAGING: CT scan reviewed from yesterday. ASSESSMENT AND PLAN: An 87-year-old male with possible choledocholithiasis. 1. Choledocholithiasis. At this time, I think his pancreatitis has improved. He is off pressors. I think we could plan for surgical intervention. I did discuss with Dr. Selby that he is likely as optimized as he can be before surgery, and that he would be able to likely tolerate it. We will plan on doing this tomorrow. Discussed with patient the risks, benefits and alternatives. Risks include, but not limited to bleeding, infection, risk of anesthesia, risk of common bile duct injury, risk of bile leak, and risk of injuring surrounding tissues. We will plan on the schedule on doing this tomorrow. cc: Neel Disal MD
[2018-10-18] MEDS: MORPHINE IV PRN (02:24)
[2018-10-18] MEDS: XOPENEX NEB INH SCH ×2 (03:34→10:31)
[2018-10-18] MEDS: LOVENOX SUBQ SCH (05:18)
[2018-10-18] MEDS: ZOSYN 3.375 GM in NS 50 ML IV SCH ×2 (05:19→12:32)
[2018-10-18] MEDS: LOPRESSOR PO SCH ×2 (05:19→12:05)
[2018-10-18 05:59] LABS: BASO# 0.03 X1000 (0.0-0.2); BASO% 0.4 % (0.0-0.8); HEMATOCRIT 40.7 % (42.0-52.0); HEMOGLOBIN 13.2 g/dL (14.0-18.0); IMM GRAN# 0.02 X1000 (0.0-0.04); IMM GRAN% 0.3 % (0.0-0.5); LYMPH% 14.8 % (20.5-51.1); MCHC 32.4 g/dL (33-37); MCV 86.2 FL (81-99); MONO# 0.96 X1000 (0.11-0.59); MONO% 12.9 % (1.7-9.3); MPV 10.8 FL (7.4-10.4); NEUT# 5.01 X1000 (1.4-6.5); NEUT% 67.6 % (42.2-75.2); PLT 173 X1000 (130-400); RBC 4.72 XMIL (4.7-6.1); RDW 14.5 % (11.5-14.5); WBC 7.42 X1000 (4.8-10.8)
[2018-10-18 06:09] LABS: AGAP 10; ALBUMIN 2.8 g/dL (3.5-5.0); ALKALINE PHOSPHATASE 107 U/L (32-122); BUN 12 mg/dL (8-22); CALCIUM 8.1 mg/dL (8.8-10.2); CHLORIDE 102 mmol/L (98-107); COSMO 281; CREATININE 1.1 mg/dL (0.7-1.2); ESTIMATED GFR > 60; GLUCOSE 90 mg/dL (70-104); GOT 37 U/L (10-34); GPT 53 U/L (10-44); POTASSIUM 3.3 mmol/L (3.5-5.1); SODIUM 141 mmol/L (136-145); TCO2 29 mmol/L (25-35); TOTAL BILIRUBIN 2.16 mg/dL (0.20-1.00); TOTAL PROTEIN 5.6 g/dL (6.3-8.3)
--- NOTE | 2018-10-18 08:05 | Diag Imaging Result Doc PS360 ---
EXAM: CHEST-PORTABLE HISTORY: dyspnea TECHNIQUE: Portable chest single view COMPARISON: 10/16/2018 FINDINGS: Poor inspiratory effort. No change in the left-sided PICC line. The heart is not enlarged. There are mild increased interstitial markings/pulmonary edema similar to the prior exam. Questionable tiny pleural effusions. IMPRESSION: No interval improvement. Electronically signed by Delon Keller 10/18/2018 8:02 AM
[2018-10-18] MEDS ORDERED: LR 1,000 ML ONE (08:27)
[2018-10-18] MEDS ORDERED: SODIUM CHLORIDE 0.9% ONE (08:27)
[2018-10-18] MEDS ORDERED: SENSORCAINE-MPF 0.5%/EPI 1:200,000 ONE (08:27)
[2018-10-18] MEDS ORDERED: QUELICIN (DOSE) ONE (08:32)
[2018-10-18] MEDS: LR 1,000 ML IV SCH (08:32)
[2018-10-18] MEDS ORDERED: DIPRIVAN 1% ONE (08:32)
[2018-10-18] MEDS ORDERED: XYLOCAINE-MPF 2% ONE (08:32)
[2018-10-18] MEDS ORDERED: LANOXIN PO SCH (09:00)
[2018-10-18] MEDS ORDERED: ZOFRAN ONE (09:22)
[2018-10-18] MEDS ORDERED: DECADRON ONE (09:22)
[2018-10-18] MEDS: NEURONTIN PO SCH (09:26)
[2018-10-18 10:04] LABS: HEPATITIS PROFILE ACUTE SEE COMMENTS
--- NOTE | 2018-10-18 10:27 | GENERAL SURGERY PROGRESS NOTE ---
DATE: 10/18/2018 SUBJECTIVE: Patient seems to be a little bit confused today, but [facility]. He has been hemodynamically stable. OBJECTIVE: Vital Signs: Patient is currently afebrile. His vital signs are stable. General Exam: No acute distress. HEENT: Normocephalic, atraumatic. Pupils equal, round, reactive to light. Mucous membranes moist. Oropharynx benign. Neck: Supple. Trachea midline. Cardiovascular: Regular rate and rhythm. Lungs: Grossly clear. Abdomen: Soft, nontender, nondistended at this time. Extremities: Moves all extremities. Neurologic: Grossly intact. Skin: No signs of jaundice. Vascular: All extremities perfused. LABORATORY: None this morning as of yet. ASSESSMENT AND PLAN: An 87 year old with possible choledocholithiasis, biliary pancreatitis. 1. Choledocholithiasis. At this time, patient seems to be clinically doing well. I did discuss with Cardiology about perioperative risk stratification. I think he is okay to go to surgery. I initially discussed with the patient the risks, benefits, alternatives. He seems to be little confused. So, I talked with his daughter over the phone with the nurses present, and reiterated the risks, benefits, and alternatives as discussed with the dad yesterday over the phone. She voiced understanding. She wished to proceed. We will plan on surgical intervention today. cc: Neel Disla MD
[2018-10-18] MEDS ORDERED: MORPHINE ONE ×2 (10:34→10:41)
[2018-10-18] MEDS ORDERED: LASIX ONE (10:41)
[2018-10-18] MEDS ORDERED: DUONEB (A & A) INH ONE (10:49)
--- NOTE | 2018-10-18 11:51 | EKG Report ---
Test Performed on : 10/18/2018 11:04:46 AM Test Reason : ekg changes Blood Pressure : / mmHG Vent. Rate : 071 BPM Atrial Rate : 071 BPM P-R Int : 150 ms QRS Dur : 126 ms QT Int : 462 ms P-R-T Axes : 053 070 -23 degrees QTc Int : 502 ms Normal sinus rhythm. Right bundle branch block Abnormal ECG When compared with ECG of 16-OCT-2018 11:13, (Unconfirmed) Brpgj-Swizxevbb-Pmmsl is no longer present Confirmed by Tadeo GRANADO, Marvin Kingston ([id number]) on 10/18/2018 2:14:15 PM
[2018-10-18 11:54] VITALS: BP 116/59
[2018-10-18] MEDS: LASIX IV SCH (12:04)
--- NOTE | 2018-10-18 12:14 | Diag Imaging Result Doc PS360 ---
EXAM: OPERATIVE CHOLANGIOGRAM HISTORY: GALLBLADDER DX TECHNIQUE: Intraoperative cholangiogram, three views COMPARISON: None. FINDINGS: Contrast fills a dilated common bile duct. There is a filling defect distally consistent with a large stone. There are several other smaller stones or air bubbles distal to the larger stone. IMPRESSION: Choledocholithiasis. Electronically signed by Delon Keller 10/18/2018 12:11 PM
[2018-10-18] MEDS ORDERED: LR 1,000 ML IV SCH (12:15)
[2018-10-18] MEDS ORDERED: CARDIZEM 100 MG/NS 100 MG/100 ML IVPB IV SCH (12:15)
[2018-10-18] MEDS: PROTONIX IV SCH (12:33)
--- NOTE | 2018-10-18 14:41 | PROGRESS NOTE ---
DATE: 10/18/2018 SUBJECTIVE: The patient was seen postoperatively per Dr. Disla. His intraoperative cholangiogram showed significant pathology in the form of distal common bile duct stone. I saw him postoperatively, and he was having some confusion, a little bit of desaturation. He is at 93% to 95% percent on 4 liters, which is where he has been the last 24 hours. OBJECTIVE: Vital Signs: Blood pressure 116/59, heart rate 93, respiratory rate 18, temperature 98.3 degrees. Cardiovascular: Regular rate and rhythm. Pulmonary: Bilateral breath sounds, clear to auscultation. Gastrointestinal: Soft, nontender, nondistended. Bowel sounds are positive. He is seen postoperatively. He has a drain in place after laparoscopic cholecystectomy. LABORATORY DATA: White count 7, hemoglobin and hematocrit of 13 and 40, platelets of 173,000. Potassium 3.3, T-bilirubin 2.16, AST and ALT of 37 and 53, albumin of 2.8. PROBLEM LIST: 1. Choledocholithiasis. Now planning for ERCP, unavailable at our facility, so we will transfer him to [facility] for procedure, then he is due to return back assuming there are no issues postoperatively or intraoperatively. 2. Shock. This has now resolved. He is off pressors. 3. Gallstone pancreatitis, that has also resolved and likely related to choledocholithiasis and cholelithiasis, again planning for ERCP today. 4. Volume overload, pleural effusions. Echo has been normal. He has been placed on Lasix. We will continue to monitor. I am going to bump up his fluids a little bit just because he has been nothing by mouth for the surgery and now nothing by mouth for ERCP and we will follow. His echocardiogram again showed an intact ejection fraction. 5. Chronic obstructive pulmonary disease is stable. Continue breathing treatments. 6. Atrial fibrillation is rate controlled on Cardizem currently. We may need to reinitiate low- dose Cardizem when he tolerates oral intake. cc: Jose Hay MD
--- NOTE | 2018-10-18 15:45 | OPERATIVE NOTE ---
PROCEDURE DATE: 10/18/2018 PREOPERATIVE DIAGNOSES: 1. Biliary pancreatitis. 2. Common bile duct stone. POSTOPERATIVE DIAGNOSES: 1. Biliary pancreatitis. 2. Common bile duct stone. PROCEDURE: Laparoscopic cholecystectomy with cholangiogram. SURGEON: Neel Disla MD ENVIRONMENTAL DEPARTMENT MANAGER: None. ANESTHESIA: General endotracheal. INTRAOPERATIVE FINDINGS: Distal common bile duct stone. COMPLICATIONS: None at time of this dictation. ESTIMATED BLOOD LOSS: 5 mL. SPECIMEN REMOVED: Gallbladder. DRAINS: 19-Kinyarwanda. BRIEF HISTORY: An 87-year-old male who presented initially to [place] with biliary pancreatitis. He improved clinically after resuscitation, felt that he would benefit from a laparoscopic cholecystectomy with cholangiogram. The risks, benefits, and alternatives were discussed. All questions answered. DESCRIPTION OF PROCEDURE: After informed consent was obtained, patient brought to the operative theatre and transferred to the operative table, and placed in the supine position. General endotracheal anesthesia was then performed without complication. A formal time-out was then performed, confirming patient, date, and procedure. All were in agreement. At that time, attention was turned to the abdomen. An infraumbilical incision was made through which, using Optiview technique, we inserted an 11 mm trocar and connected it to insufflation. Pneumoperitoneum was achieved. Under direct visualization, we placed 3 more trocars, all 5 mm, 1 subxiphoid and 2 in the right upper quadrant. Using these, the gallbladder was identified and retracted cephalad. We dissected out the cystic duct and cystic artery to achieve the critical view of safety. We placed 1 clip on the gallbladder side of the cystic duct, performed a ductotomy, placed a cholangiogram catheter through it, and shot a cholangiogram which showed a common bile duct stone in the distal common bile duct. We did see the left and right hepatic ducts. There was some emptying of the contrast into the duodenum. We then doubly clipped and ligated the cystic duct and cystic artery, and dissected the gallbladder off the gallbladder fossa. There was some spillage of bile in the abdomen, which we irrigated out, placed the gallbladder into an EndoCatch and brought it out through the infraumbilical incision. We irrigated out the abdomen copiously until the suction fluid was clear. Given the fact that there is a common bile duct stone and potential for issues with the cystic duct, we left a drain from the most lateral trocar site and secured it in place with a nylon stitch. We then removed all trocars and disconnected insufflation. Pneumoperitoneum was released. We then closed all skin incisions with 4-0 Monocryl and closed the infraumbilical incision with 0 Vicryl on a [employer] device. cc: Neel Disla MD
--- NOTE | 2018-10-25 02:10 | GENERAL SURGERY PROGRESS NOTE ---
DATE: 10/14/2018 SUBJECTIVE: No events. He has continued to be diuresed. He is tolerating diet. He is having bowel function. No fevers. OBJECTIVE: Vital Signs: Pulse 64, blood pressure 98/50 at this moment, but it has been better than that earlier throughout the day. General: He is alert. There is no jaundice. RAZ drain serosanguineous. Incisions are intact. LABORATORY DATA: White count is 11, hematocrit is 37, creatinine 1.0. ASSESSMENT AND PLAN: An 87-year-old gentleman status post laparoscopic cholecystectomy with endoscopic retrograde cholangiopancreatography. Mostly cardiopulmonary issues currently. He is doing overall well from a surgical standpoint, I removed his drain. We can advance his diet. We will continue bowel regimen while inpatient. We will defer management to Hospitalist. cc: Lea Duvall MD
--- NOTE | 2018-10-30 15:00 | ED EKG INTERP ---
This chart was entered by Jessica Kim Scribe, acting as scribe for Pernell Avelar MD. EKG Interpretation - EKG Time of EKG reading by physician:: 22:00 EKG Read and Signed by:: Pernell Avelar EKG Interpretation (*Must complete 3 of following elements*): Abnormal Rate: 59 Rhythm: Sinus bradycardia QRS: RBB ST Wave: non-specific ST changes (T wave abnormality, consider lateral ischemia) Prior EKG Comparison: unchanged from prior Attestation - Physician/ ALEX Attestation Patient care was provided by Advanced Practice Provider:: Yes Advanced Practice Provider:: Brodie Mccollum Advanced Practice Provider documentation review:: The Mid-level provider documentation, treatment plan and medical decision making was reviewed by the physician who agrees with all treatment and medical decision making by the MLP. The physician spent face to face time with patient:: No Advanced Practice Provider documentation review:: Supervising physician onsite and consulted in the evaluation and care of this patient. The physician did not have a face to face encounter with the patient. This chart was documented by the indicated scribe, (Jessica Kim Scribe) and accurately reflects the services I performed and decisions made by me, Pernell Avelar MD, as attested by the provider's signature.
--- NOTE | 2018-11-13 15:27 | DISCHARGE SUMMARY ---
ADMISSION DATE: 10/14/2018 DISCHARGE DATE: 10/18/2018 DISCHARGE DIAGNOSES: 1. Choledocholithiasis. 2. Shock. 3. Gallstone pancreatitis. 4. Volume overload. Pleural effusions. 5. Atrial fibrillation. SUMMARY: The patient was initially admitted to, I believe, [place] for abdominal pain. He was found to have acute pancreatitis. He was actually placed on Levophed for blood pressure because he was hypotensive. He was maintained on Zosyn. Echocardiogram showed an EF of 65%. He slowly improved. Dr. Disla was consulted for gallstone pancreatitis. He recommended resuscitation first. He was maintained on IV antibiotics. He slowly improved. He eventually was transferred to [facility] for surgery. We were concerned about choledocholithiasis because he had elevation in his liver enzymes and he had gallstone pancreatitis. He did develop atrial fibrillation with RVR requiring a Cardizem drip. Cardiology was consulted. He was given Cardizem. Clinically, he improved. His venous Dopplers were negative for PE. After surgery, which was completed by Dr. Disla on the , he had gallbladder removal, but he also had a distal common bile duct stone per his intraoperative cholangiogram. ERCP providers were not available at our service so he was sent to [facility] for treatment. Whilst there, I think he developed some respiratory insufficiency and had to spend 24 hours there before being transferred back to our service which is under the 10/19/18 admission. Discharge condition was stable. Procedures include PICC line, lap choly, intraoperative cholangiogram. cc: MD Neel Lira MD Ashish K. Basu, MD MTDD
== END 2018-10-18 16:35 | disposition short-term general hospital (02) | DRG 853 ==
LOC: P.ED 22:29 → SUATTDRO 10-14 05:05 → P.ICU 10-14 05:05 → 3S 10-17 17:23
PROVIDERS: ATTEND Internal Medicine
CPT/HCPCS: 36569; 51702; 71010; 71020; 71045; 71046; 74177; 74300; 76700; 80048; 80053; 80074; 80076; 81001; 82150; 82533; 82550; 82553; 83605; 83690; 83735; 83880; 84100; 84484; 85025; 85610; 85730; 87040; 87077; 87088; 87186; 88304; 93005; 93010; 93306; 93971; 94640; 94761; 96365; 96375; 99285; A9270; C8929; C9113; J0330; J1100; J1160; J1650; J1940; J2270; J2370; J2405; J2543; J2550; J2997; J3370; J7030; J7050; J7120; P9047; Q9957; Q9966; Q9967; S0164

== ENCOUNTER 2019-11-10 13:37 | Inpatient (IN) ==
--- NOTE | 2019-11-10 14:03 | PROVIDER DOCUMENTATION ---
HPI-General Adult - General Stated Complaint: FALL/GERD Time Seen by Provider: 11/10/19 13:54 Source: patient Allergies/Adverse Reactions: Patient Allergies Allergy/AdvReac Type Severity Reaction Status Date / Time No Known Allergies Allergy Verified 11/10/19 16:14 Home Medications: Home Medication List Medication Instructions Recorded Confirmed Last Taken Type SIMVAstatin [Zocor] 40 mg PO QHS 12/16/12 11/10/19 06/24/17 History Aspirin 81 mg PO DAILY 06/24/17 11/10/19 06/24/17 History Diltiazem C.d. [Cardizem Cd] 120 mg PO BID #60 cap 11/13/19 Unknown Rx Metoprolol Succinate E.r. [Toprol 25 mg PO DAILY #30 tab 11/13/19 Unknown Rx Xl] Omeprazole 40 mg PO BID #60 capsule. 11/13/19 Unknown Rx - History of Present Illness -Gen Adult Nature of Presenting Problems: 88 YO M presents with c/o feeling lightheaded and falling a few times before calling EMS. 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 On exam, first EKG was showing HR of 188 with wide QRS tachycardia. He was then transfered from the EMS stretcher to the bed and he spontaneously converted. Pt currently denies any chest pain, abdominal pain, or recent URI symptoms. He denies having an NE in the past. This patient has a hx of afib vs aflutter and was put on Eliquis on prior admission in 2018. Location of Pain/Injury: reports: none Pain Radiation: reports: no radiation Timing: reports: still present Modifying Factors: improves with: nothing Associated Symptoms: denies: chest pain, fever/chills, headaches, nausea, vomiting, weakness Similar Symptoms Previously?: Yes Recently seen or treated by another doctor?: No Review of Systems - Adult - REVIEW OF SYSTEMS - ADULT Constitutional: denies: chills, fever Eyes: reports: no symptoms reported Ears, Nose, Mouth & Throat: reports: no symptoms reported Cardiovascular: reports: palpitations. denies: chest pain Respiratory: denies: cough Gastrointestinal: denies: abdominal pain Genitourinary: denies: dysuria Musculoskeletal: reports: no symptoms reported Integumentary: reports: no symptoms reported Neurological: reports: no symptoms reported Psychiatric: reports: no symptoms reported Past History - Adult - PAST MEDICAL HISTORY-ADULT Review of Records: reports: Old Records Reviewed, Medications Reviewed, Social history reviewed & non-contributory. Major Childhood Illnesses: reports: denies history Cardiovascular: reports: CHF, HTN, hyperlipidemia Respiratory: reports: denies history Gastrointestinal: reports: denies history Obstetrical/Gynecological: reports: denies history Genitourinary: reports: kidney stones Musculoskeletal: reports: denies history Neurological: reports: denies history Endocrine/Immune: reports: denies history Other Conditions: reports: denies history - PRIOR SURGERIES/PROCEDURES Surgical/Procedure History: reports: reviewed, not pertinent, cholecystectomy - IMMUNIZATION STATUS Childhood Immunizations: See Nurse Assessment Flu Vaccine: See Nurse Assessment - FAMILY HISTORY Family History: reviewed, not pertinent - SOCIAL HISTORY Smoking: quit greater than 1 year Substance Use: denies Living Situation: family Physical Exam-General - PHYSICAL EXAM-ADULT Initial Vital Signs Reviewed: Yes - CONSTITUTIONAL General Appearance: alert, mild distress - EYES Eyes: PERRL/EOMI, pink conjunctivae - HEAD, EARS, NOSE, MOUTH & THROAT HENMT: normocephalic/atraumatic, moist mucous membranes - NECK Neck: supple, normal inspection - RESPIRATORY Respiratory: lungs clear, normal breath sounds, no pleuratic chest pain, no respiratory distress, no accessory muscle use - CARDIOVASCULAR Cardiovascular: regular rate, rhythm (on exam, pt had converted to regular rate) - GASTROINTESTINAL (ABDOMEN) Abdominal Exam: non tender, soft. negative: hernia - MUSCULOSKELETAL Back Exam: no CVA tenderness Extremity: normal inspection, no pedal edema, no calf tenderness - SKIN Integumentary: warm/dry, pallor - NEUROLOGIC Neurologic: grossly normal - PSYCHIATRIC Psych/Mental Status: normal mood/affect, oriented x 3 Progress - PLAN OF CARE/RESULTS Result Diagrams: 11/13/19 13:21 11/13/19 05:37 - REASSESSMENT Reassessment #1 Time Reassessed: 14:25 Status: improving (HR currently 88, BP 151/88. pt resting comfortably in bed. labs pending.) Reassessment #2 Time Reassessed: 15:33 Status: improving (labs reviewed. WBC at 12, hypokalemia, possible infiltrates on cxr, will get lactate and blood cx and start abx. pt HR remains in the 70s- 80s. stable for admission) - EKG 1 Time of EKG reading by physician:: 13:48 EKG Read and Signed by:: Yousif Vargas EKG Interpretation (*Must complete 3 of following elements*): Abnormal Rate: 188 Rhythm: Wide QRS tachycardia QRS: RBB, other (Wide tachycardia) Prior EKG Comparison: changes noted 2 Time of EKG reading by physician:: 14:02 EKG Read and Signed by:: Dorota Rice EKG Interpretation (*Must complete 3 of following elements*): Abnormal Rate: 87 Rhythm: Sinus with PACs [place]: normal QRS: RBB ST Wave: non-specific ST changes Prior EKG Comparison: changes noted (changes from recent previous above- without intervention. When compared to previous in 10/21/18, unchanged RBBB and t wave inversions) - XRAY 1 XRAY Study: Chest Impression: See EMR Report (CHEST-1 VIEW - 11/10/2019 INDICATION: CP COMPARISON: 10/28/2018 FINDINGS: Lung volumes are lower. There is some acc entuation in ill-defined bibasilar infiltrates/atelectasis. Heart size is normal. No pneumothorax or significant pleural effusion. IMPRESSION: Lower lung volumes. Accentuated bibasilar indeterminate infiltrates or atelectasis. Electronically signed by Mauricio Lovett 11/10/2019 2:49 PM) - CONSULTS/PCP/HOSPITALIST Notification #1 *Consult/PCP/Hospitalist*: Dr. Coates Time Discussed: 15:34 Consult Disposition: Will see in ED (states to consult cardiology for trop of 200s.) #2 Consult: Dr. Selby Time Discussed: 15:50 Consult Disposition: Admit Departure - Departure Date of Disposition Decision: 11/10/19 Time of Disposition Decision: 15:35 DIAGNOSIS: Palpitations, Hypokalemia, Pneumonia Disposition: ADMITTED INPATIENT 09 Certified Medical Emergency: Emergent Condition: Stable - Critical Care Note This patient required my direct & personal management of CC.: Yes Total Time (mins): 35 Critical Care Statement: This patient required my direct personal management to treat or rule out processes, the absence of which, could potentiallly result in sudden, clinically significant life or limb threatening deterioration. Attestation - Physician/ ALEX Attestation Patient care was provided by Advanced Practice Provider:: No The physician spent face to face time with patient:: Yes Advanced Practice Provider documentation review:: Supervising physician onsite and consulted in the evaluation and care of this patient. The physician did have a face to face encounter with the patient.
--- NOTE | 2019-11-10 14:13 | EKG Report ---
Test Performed on : 11/10/2019 2:01:37 PM Test Reason : CHANGE IN RHYTHM Blood Pressure : / mmHG Vent. Rate : 087 BPM Atrial Rate : 087 BPM P-R Int : 170 ms QRS Dur : 116 ms QT Int : 404 ms P-R-T Axes : 050 017 013 degrees QTc Int : 486 ms Sinus rhythm. with premature atrial complexes. Incomplete right bundle branch block Nonspecific ST and T wave abnormality Abnormal ECG When compared with ECG of 10-NOV-2019 13:48, (Unconfirmed) Sinus rhythm. has replaced Wide QRS tachycardia. Vent. rate has decreased BY 101 BPM Unconfirmed Result
--- NOTE | 2019-11-10 14:13 | EKG Report ---
Test Performed on : 11/10/2019 1:48:52 PM Test Reason : CP Blood Pressure : / mmHG Vent. Rate : 188 BPM Atrial Rate : 192 BPM P-R Int : 000 ms QRS Dur : 122 ms QT Int : 252 ms P-R-T Axes : 000 040 -37 degrees QTc Int : 446 ms Wide QRS tachycardia. Right bundle branch block Abnormal ECG When compared with ECG of 21-OCT-2018 10:10, Wide QRS tachycardia. has replaced Sinus rhythm. Vent. rate has increased BY 120 BPM Unconfirmed Result
[2019-11-10 14:39] LABS: BASO# 0.06 X1000 (0.0-0.2); BASO% 0.5 % (0.0-0.8); EOS% 2.4 % (0.0-10.0); HEMATOCRIT 49.7 % (42.0-52.0); HEMOGLOBIN 16.3 g/dL (14.0-18.0); IMM GRAN# 0.05 X1000 (0.0-0.04); IMM GRAN% 0.4 % (0.0-0.5); LYMPH# 3.39 X1000 (1.2-3.4); LYMPH% 27.3 % (20.5-51.1); MCH 27.5 PG (27-31); MCHC 32.8 g/dL (33-37); MONO# 1.19 X1000 (0.11-0.59); MONO% 9.6 % (1.7-9.3); NEUT# 7.41 X1000 (1.4-6.5); NEUT% 59.8 % (42.2-75.2); PLT 220 X1000 (130-400); RBC 5.92 XMIL (4.7-6.1); RDW 14.5 % (11.5-14.5)
[2019-11-10 14:45] LABS: INR 1.08; PROTIME 14.1 Seconds (11.0-16.0)
[2019-11-10 14:46] LABS: PTT 34.6 Seconds (22.3-41.8)
[2019-11-10 14:51] LABS: ALB/GLOB RATIO 1.4; CREATININE 1.3 mg/dL (0.7-1.2); POTASSIUM 3.2 mmol/L (3.5-5.1); TOTAL BILIRUBIN 1.2 mg/dL (0.20-1.00); TOTAL PROTEIN 6.8 g/dL (6.3-8.3)
--- NOTE | 2019-11-10 14:52 | Diag Imaging Result Doc PS360 ---
CHEST-1 VIEW - 11/10/2019 INDICATION: CP COMPARISON: 10/28/2018 FINDINGS: Lung volumes are lower. There is some accentuation in ill-defined bibasilar infiltrates/atelectasis. Heart size is normal. No pneumothorax or significant pleural effusion. IMPRESSION: Lower lung volumes. Accentuated bibasilar indeterminate infiltrates or atelectasis. Electronically signed by Mauricio Lovett 11/10/2019 2:49 PM
[2019-11-10] MEDS ORDERED: ROCEPHIN 1 GM in NS 50 ML IV ONE (15:03)
[2019-11-10] MEDS ORDERED: NS 1,000 ML IV ONE (15:08)
[2019-11-10] MEDS ORDERED: POTASSIUM CHLORIDE 20% LIQUID PO ONE (15:08)
[2019-11-10 15:16] LABS: URINE SOURCE CLEAN CATCH
[2019-11-10 15:23] LABS: BILIRUBIN URINE NEGATIVE (NEGATIVE); BLOOD URINE NEGATIVE (NEGATIVE); COLOR STRAW; GLUCOSE URINE NEGATIVE (NEGATIVE); KETONE URINE NEGATIVE (NEGATIVE); LEUKOCYTES URINE NEGATIVE (NEGATIVE); NITRITE URINE NEGATIVE (NEGATIVE); PH URINE 7.5; PROTEIN URINE NEGATIVE (NEGATIVE); SP GRAVITY URINE 1.005; TURBIDITY URINE CLEAR (CLEAR); UROBILINOGEN URINE NORMAL (NORMAL)
[2019-11-10 15:25] LABS: UR EPITHELIAL CELLS <10 /HPF (<10); URINE BACTERIA NEGATIVE /HPF; URINE RBC <10 /HPF (<10); URINE WBC <10 /HPF (<10)
[2019-11-10] MEDS ORDERED: LOVENOX SUBQ SCH (17:06)
[2019-11-10] MEDS ORDERED: TYLENOL PO PRN (17:06)
[2019-11-10] MEDS ORDERED: ZOFRAN IV PRN (17:06)
--- NOTE | 2019-11-10 17:31 | HISTORY AND PHYSICAL ---
PRIMARY CARE PHYSICIAN: Dr. Christos Hinson. CHIEF COMPLAINT: Feeling lightheaded with some palpitations at home and fell this morning. When he arrived to the ER, his heart rate was noted to be 188 and he spontaneously converted once transferred from the ambulance stretcher to the ER stretcher. HISTORY OF PRESENTING ILLNESS: This is an 88-year-old male who presents to [facility] ER via EMS after he states this morning he felt lightheaded, dizzy, had a fall. He also noted some palpitations this morning. When he arrived to the emergency room on his initial EKG while still on the ambulance stretcher showed a heart rate of 188 with a wide QRS tachycardia. Once he was transferred over to the ER stretcher, he spontaneously converted. His workup showed a white blood cell count of 12.40, potassium was 3.2, creatinine of 1.3. Troponin T-high sensitivity was 232. His chest x-ray showed low lung volumes, but accentuated bibasilar indeterminate infiltrates or atelectasis so he is being admitted for further evaluation and treatment. It is noted that he currently denies any chest pain. PAST MEDICAL HISTORY: Atrial fibrillation versus flutter, CHF, hypertension, hyperlipidemia, kidney stones. PAST SURGICAL HISTORY: Cholecystectomy. FAMILY HISTORY: Reviewed and noncontributory. SOCIAL HISTORY: Currently lives with family, is a former smoker but not currently and denies any alcohol or illicit drug use. ALLERGIES: He has no known drug allergies. HOME MEDICATIONS: We will need to obtain a current list, reconcile, review and restart as appropriate. We will place an order for nursing to update and confirm home medications. LABORATORY DATA: Showed a white blood cell count of 12.40, hemoglobin 16.3, hematocrit 49.7, platelets 220,000. PT and INR of 14.1 and 1.08. Sodium 139, potassium 3.2, chloride 96, CO2 28, BUN of 21, creatinine 1.3, glucose 111, magnesium of 2.3, total bilirubin of 1.20. Creatine kinase of 131. Troponin T high sensitivity 232. ProBNP of 2053 plasma lactate 1.5. TSH 3.01. Urinalysis was negative. EKG on arrival showed a wide QRS tachycardia at 188. After he converted, he was in normal sinus rhythm with PACs at 87. Chest x-ray showed low lung volumes, bibasilar indeterminate infiltrates or atelectasis. REVIEW OF SYSTEMS: He denied any fever, chills. He has had some blurred vision, dizziness, lightheadedness, palpitations. Denied chest pain, shortness of breath, abdominal pain, constipation, diarrhea, burning or hurting with urination. PHYSICAL EXAMINATION: VITAL SIGNS: On arrival, he had a temperature of 97.5, pulse 88, respirations 15, blood pressure 151/88, satting 96% on room air. Orthostatic vital signs showed lying 127/76 with a pulse of 76, sitting 111/70 with a pulse of 80 and standing 97/62 with a pulse of 90. GENERAL: This is an 88-year-old male who is lying in the bed and answers questions appropriately. HEENT: Normocephalic, atraumatic. Normal ENT inspection. Oropharynx and nares are clear. Pupils are equal, round, reactive to light and accommodation. Extraocular movements are intact. NECK: Normal inspection. Normal range of motion. LUNGS: Clear to auscultation bilaterally with equal lung expansion and chest wall movement. HEART: With regular rate and rhythm. No murmurs, rubs, or gallops. ABDOMEN: Soft, nontender, nondistended. Bowel sounds are present x4 quadrants. MUSCULOSKELETAL: He had 5/5 strength x4 extremities. NEUROLOGICAL: The cranial nerves 2-12 appear grossly intact. ASSESSMENT: 1. Fall. 2. Supraventricular tachycardia. 3. Orthostatic hypotension. 4. Bilateral left lower lobe pneumonia. 5. Hypokalemia. 6. Elevated troponin. 7. An acute kidney injury. PLAN: He will be admitted to our PVC unit, placed on telemetry O2 per protocol. We will consult Cardiology, do an echocardiogram in the a.m. Place on normal saline at 75 mL an hour. Lovenox 40 mg subcu q.24, Rocephin 1 gram IV q.24, azithromycin 500 IV q.24, DuoNeb q.4 hours, update and confirm home medications. Check a procalcitonin level and further orders after seen by attending. Dictated by ANDREW Covarrubias for Crystal Sanchez MD cc: MD Luz Maria Crouch CRNP Katherine Takundwa, MD I performed a face to face encounter on the patient. I reviewed all labs and imaging on the patient. I agree with the H&P as dictated. MTDD
[2019-11-10] MEDS: NS 1,000 ML IV SCH (17:52)
[2019-11-10] MEDS: ZITHROMAX 500 MG/NS 500 MG/250 ML IVPB IV SCH (17:52)
[2019-11-10 18:23] LABS: HEMOGLOBIN A1C 5.8 % (4.8-6.0)
[2019-11-10 18:37] LABS: MAGNESIUM 2.2 mg/dL (1.5-2.7); PHOSPHORUS 3.7 mg/dL (2.7-4.5); POTASSIUM 3.3 mmol/L (3.5-5.1)
[2019-11-10] MEDS: MYLICON DROPS PO PRN (19:11)
[2019-11-10] MEDS ORDERED: G.I. COCKTAIL PO ONE (19:33)
--- NOTE | 2019-11-10 19:45 | EKG Report ---
Test Performed on : 11/10/2019 7:38:30 PM Test Reason : CP Blood Pressure : / mmHG Vent. Rate : 068 BPM Atrial Rate : 068 BPM P-R Int : 152 ms QRS Dur : 108 ms QT Int : 420 ms P-R-T Axes : 039 018 059 degrees QTc Int : 446 ms Sinus rhythm. with premature atrial complexes. Incomplete right bundle branch block Nonspecific T wave abnormality Abnormal ECG When compared with ECG of 10-NOV-2019 14:01, (Unconfirmed) ST no longer depressed in Anterior leads Nonspecific T wave abnormality, improved in Anterior leads Confirmed by Keith GRANADO, Gama Locke ([id number]) on 11/11/2019 6:15:07 PM
[2019-11-10] MEDS: DUONEB (A & A) INH SCH ×2 (20:03→23:11)
[2019-11-10] MEDS: ELIQUIS PO SCH (21:41)
[2019-11-11] MEDS: DUONEB (A & A) INH SCH ×5 (03:47→20:18)
[2019-11-11 06:06] LABS: HEMATOCRIT 45.1 % (42.0-52.0); HEMOGLOBIN 14.5 g/dL (14.0-18.0); MCH 28.2 PG (27-31); MCHC 32.2 g/dL (33-37); MCV 87.7 FL (81-99); MPV 10.6 FL (7.4-10.4); RBC 5.14 XMIL (4.7-6.1); RDW 14.9 % (11.5-14.5); WBC 7.62 X1000 (4.8-10.8)
[2019-11-11] MEDS ORDERED: CARDIZEM IV ONE (06:34)
[2019-11-11 06:38] LABS: CALCIUM 8.5 mg/dL (8.8-10.2); CREATININE 1.2 mg/dL (0.7-1.2); POTASSIUM 3.6 mmol/L (3.5-5.1)
--- NOTE | 2019-11-11 06:41 | EKG Report ---
Test Performed on : 11/11/2019 06:20:13 AM Test Reason : SVT Blood Pressure : / mmHG Vent. Rate : 162 BPM Atrial Rate : 153 BPM P-R Int : 000 ms QRS Dur : 130 ms QT Int : 310 ms P-R-T Axes : 000 053 -77 degrees QTc Int : 508 ms Critical Test Result: High HR Wide QRS tachycardia. Right bundle branch block T wave abnormality, consider inferior ischemia Abnormal ECG When compared with ECG of 10-NOV-2019 19:38, (Unconfirmed) Wide QRS tachycardia. has replaced Sinus rhythm. Vent. rate has increased BY 94 BPM Confirmed by Keith GRANADO, Gama Locke ([id number]) on 11/11/2019 6:15:15 PM
[2019-11-11] MEDS ORDERED: CARDIZEM 100 MG/NS 100 MG/100 ML IVPB IV SCH (06:45)
[2019-11-11 07:07] LABS: MAGNESIUM 2.1 mg/dL (1.5-2.7); PHOSPHORUS 3.5 mg/dL (2.7-4.5)
--- NOTE | 2019-11-11 07:19 | EKG Report ---
Test Performed on : 11/11/2019 07:00:01 AM Test Reason : SVT Blood Pressure : / mmHG Vent. Rate : 061 BPM Atrial Rate : 061 BPM P-R Int : 160 ms QRS Dur : 104 ms QT Int : 452 ms P-R-T Axes : 034 026 045 degrees QTc Int : 455 ms Sinus rhythm. with premature atrial complexes. Incomplete right bundle branch block Nonspecific ST abnormality Abnormal ECG When compared with ECG of 11-NOV-2019 06:20, (Unconfirmed) Sinus rhythm. has replaced Wide QRS tachycardia. Vent. rate has decreased BY 101 BPM Confirmed by Keith GRANADO, Gama Locke ([id number]) on 11/11/2019 6:15:24 PM
[2019-11-11] MEDS: MYLICON DROPS PO PRN (07:21)
[2019-11-11] MEDS ORDERED: VITAMIN D PO SCH (09:00)
[2019-11-11] MEDS: ASPIRIN PO SCH (10:21)
[2019-11-11] MEDS: ELIQUIS PO SCH ×2 (10:21→20:11)
[2019-11-11] MEDS: LANOXIN IV SCH ×3 (10:21→19:49)
[2019-11-11] MEDS: CARDIZEM PO SCH ×3 (10:21→19:49)
[2019-11-11] MEDS: CARAFATE LIQUID PO SCH ×3 (10:22→19:48)
--- NOTE | 2019-11-11 10:55 | Diag Imaging Result Doc PS360 ---
EXAM: CT THORAX W/O CONTRAST 11/11/2019 HISTORY: ? pneumonia, pulmonary hypertension TECHNIQUE: This exam was performed using automated exposure control, adjustment of mA or kV according to patient size, and/or use of iterative reconstruction technique. COMMENT: There are no previous thoracic studies. Where possible comparison is made with the previous abdominal study of 10/16/2018. The pleural effusions which were present at the time the previous examination are no longer present. There is a stent in the common bile duct and there is new low biliary. There is a small hiatal hernia. There is calcification the mitral valve annulus and the coronary arteries. There are some calcifications in nodes in the asha and subcarina. No evidence of significant adenopathy is present. The aorta is not distended. There are some degenerative disc and costovertebral arthropathy changes. No evidence of acute bony abnormality is present. There are minimal fibrotic appearing changes present in the lung bases particularly in the costophrenic sulci. The atelectasis present on the previous examination was worse. No consolidation is demonstrated to suggest pneumonia. IMPRESSION: Minimal atelectasis versus fibrotic changes in the lung bases. Otherwise no evidence of acute disease. Electronically signed by Luke Fletcher 11/11/2019 10:53 AM
[2019-11-11] MEDS: NS 1,000 ML IV SCH (11:25)
--- NOTE | 2019-11-11 12:52 | CARDIOLOGY CONSULTATION ---
DATE: 11/11/2019 CONSULTATION REQUESTED BY: Hospitalist service. REASON FOR CONSULT: Arrhythmia, abnormal troponins. CHIEF COMPLAINT: Shortness of breath, abdominal discomfort. HISTORY: Mr. Cedillo is an 88-year-old male who presented to the hospital yesterday at about 2 p.m. with complaints of recurrent discomfort in the epigastrium that he describes as indigestion, radiated to the chest, associated with lightheadedness and he felt like passing out. They called the emergency medical service and they found that he had a wide complex tachycardia and brought into the emergency room. In the ER, he was given Cardizem. He converted to sinus rhythm. They started checking high sensitivity troponins. The 1st one was 2329 mg/L, the 2nd one was 297, the 3rd one 3.1, the 4th one 389. His ECG post conversion shows sinus rhythm with no ischemic changes. Again, this morning at about 6 a.m., he had another episode of rapid tachycardia and the post-conversion EKG shows again sinus rhythm with right bundle branch block and no ischemic ST changes. He feels fine as long as he is not in arrhythmia. He is on IV Cardizem now. PAST MEDICAL HISTORY: Positive for previous diagnosis of hypertension, rheumatoid arthritis, and hyperlipidemia. PAST SURGICAL HISTORY: He has had gallstone pancreatitis. He has had prostate surgery, appendectomy, and cataracts. SOCIAL HISTORY: He is . He is retired. PREVIOUS HOSPITALIZATIONS: The patient was admitted to the hospital last time in 10/19/2018. At that time we saw the patient in consultation. He appeared to be fluid overloaded following an ERCP. 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 At any rate, I had seen him at my office last time on 11/29/2018. Since then, he has not been to the hospital for admissions. He had been doing relatively well. REVIEW OF SYSTEMS: Other than the recent episodes of indigestion and episodes of heart racing, he has not experienced any further issues. There is history of pulmonary hypertension and there was 1 episode of previous paroxysmal atrial fibrillation on him. He has had some issues with edema of the lower extremities. HOME MEDICATIONS: At the time of this admission include the following: He is taking apixaban 2.5 twice a day, aspirin 81 daily, and simvastatin 40 mg at bedtime. PHYSICAL EXAMINATION: Vital signs: Blood pressure right now is 110/61, pulse 65, respirations 18, temperature 97.6 degrees, He is elderly, awake, in no distress. Cooperative. HEENT: Unremarkable. Chest: Shows diminished breath sounds. I do not hear wheezes. Heart: Sounds have regular rhythm. I do not hear a gallop or murmur. Abdomen: Nontender, soft, no masses. No hepatomegaly. Extremities: Show good pulses. No peripheral edema. Neurological: Nonfocal. Moves 4 extremities. Has no deficit. BLOOD WORK: Sodium 141, potassium 3.6, BUN 20, creatinine 1.2. White cell count 7620, platelet count 180,000, hemoglobin 14.5. IMPRESSION: 1. Patient presenting with what appears to be recurrent paroxysmal supraventricular tachycardia. 2. History of apical hypertrophic cardiomyopathy. 3. Near syncope, lightheadedness related to the combination of the 2 aforementioned conditions. 4. Previous remote history of paroxysmal atrial fibrillation in conjunction with gallstone pancreatitis. 5. Hyperlipidemia. 6. Hypertension. RECOMMENDATION: At this time, we will obtain a follow-up echocardiogram and we will do a follow- up stress test. His previous stress test was normal. The elevation of troponin is probably nonspecific in his case given the fact that his EKG shows no ischemic changes. His CPKs were done 3 times and they are all negative. I suspect this high sensitivity troponin is due to the hypertrophic cardiomyopathy compounded by the paroxysmal supraventricular tachycardia. We will arrange for echo and stress test today and further advice will be forthcoming. In the meantime, I am going to put him on some Carafate and a proton pump inhibitor to help with his gastroesophagitis symptoms. We will also keep him on Cardizem and Lopressor. Further advice will be forthcoming. cc: Oswald Selby MD
[2019-11-11 15:23] LABS: HEMATOCRIT 43.6 % (42.0-52.0); HEMOGLOBIN 14.1 g/dL (14.0-18.0)
[2019-11-11] MEDS ORDERED: ROCEPHIN 1 GM in NS 50 ML IV SCH (16:00)
--- NOTE | 2019-11-11 16:05 | PROGRESS NOTE ---
DATE: 11/11/2019 INTERVAL HISTORY: Patient with supraventricular tachycardia. It has now resolved after a diltiazem bolus. The patient appeared to be in normal sinus rhythm at the time of my exam. No new complaints, but patient does tell me that he has been having dark black, what sounds like melanotic stools for approximately 3 days. He did take some Pepto-Bismol, but when further queried, patient states he did not take that until after he had the dark black stools. REVIEW OF SYSTEMS: Twelve point review of systems negative except as per interval history. LABS: WBC 7.6, hemoglobin 14.5, hematocrit 45.1, platelets 180,000. Sodium 141, potassium 3.6, BUN 20, creatinine 1.2, glucose 99. Troponin 389, up from 341. IMAGING: CT chest with minimal atelectasis versus fibrosis but no acute disease. VITALS: T-max 98.1 degrees, pulse 67, respirations 20, blood pressure 112/50, O2 saturation 95% on room air. PHYSICAL EXAMINATION: General: No acute distress. Vitals: As above. HEENT: Normocephalic, atraumatic. Moist mucous membranes. Cardiovascular: Regular rate and rhythm at the time of my exam. Pulmonary: Clear to auscultation bilaterally aside from minimal bibasilar crackles. Good air entry. No wheezing. Abdomen: Soft, nontender, nondistended. Bowel sounds positive. Extremities: Peripheral pulses intact. No clubbing or cyanosis. Neurologic: Cranial nerves grossly intact. No focal deficits. Psychiatric: Normal mood and affect. Awake, cooperative. ASSESSMENT AND PLAN: 1. Supraventricular tachycardia, now converted back to normal sinus rhythm but remains on diltiazem drip. Awaiting further Cardiology recommendations. 2. NSTEMI versus type 2 myocardial infarction/demand ischemia. The patient with mildly elevated troponin which is trending up slightly. The patient without chest pain or dyspnea. EKG this morning with no new ST changes. Cardiology evaluated patient and planning on echo and stress test for further evaluation. However, they suspect that the troponin elevation is due to hypertrophic cardiomyopathy in the setting of SVT rather than acute coronary syndrome. 3. Concern for pneumonia. There was some concern for pneumonia on admission based primarily on x- ray. However, patient afebrile, no white count, no shortness of breath, essentially no cough. CT obtained to clarify which shows lung base fibrosis versus atelectasis but no evidence for pneumonia. Will stop antibiotics at this time and monitor. 4. Hypokalemia, improved with repletion. Continue to monitor. 5. Likely acute kidney injury. The patient's baseline appears to be 0.9 to 1, up a little bit 1.3 on admission coming back down currently. May be mild SUZY versus development of chronic kidney disease 3. We will continue to monitor. 6. Severe pulmonary hypertension, stable. Continue to monitor. 7. Orthostatic hypotension. May be slightly dehydrated. Giving gentle hydration currently. Monitor closely for signs of volume overload. 8. Reports of melena. The patient's blood counts are still normal range, but has had a little bit of a downtrend. Patient reporting melena for the last 3 days. We will recheck a hemoglobin this afternoon. If that is still going down, then will consult GI for further evaluation. The patient may end up needing an EGD.
[2019-11-11] MEDS: ZITHROMAX 500 MG/NS 500 MG/250 ML IVPB IV SCH (17:42)
--- NOTE | 2019-11-11 18:00 | ECHO REPORT ---
ORDER DATE: 11/11/2019 INDICATION: Paroxysmal atrial fibrillation with possible non ST myocardial infarction. M-MODE MEASUREMENTS: Left ventricle end diastole: 5.4. Left ventricle end systole: 2.8. Posterior wall: 1.1. Interventricular septum: 1.1. Left atrium: 5.3. Aortic diameter: 3.5. SUMMARY OF 2-DIMENSIONAL IMAGING: The study was difficult. Optison was added to optimize visualization of endocardium. 1. Left ventricle shows mild degree of concentric LVH with hyperdynamic contractility of the basal and mid segments. The most apical portion of the anterior wall appears to be akinetic. That would suggest a focal area of ischemia/infarction. All the other segments showed normal contractility. In fact, the contractility is really hyperdynamic, so with the exception of that focal area, the remaining myocardium is hyperdynamic. 2. The aortic valve shows sclerosis of the cusps without stenosis. 3. The mitral valve shows a minimal degree of regurgitation. 4. Pulse wave Doppler of mitral inflow shows "normal" E/A ratio. 5. Tissue Doppler of septal and lateral mitral annulus averages 7 cm. There is no diastolic dysfunction. 6. Pulmonary venous flow is normal. 7. The tricuspid valve shows a mild degree of regurgitation. Pulmonary pressure is estimated at 50 to 55 mmHg. 8. The pulmonic valve is normal. 9. The left atrium is significantly enlarged. 10.The right-sided chambers appear to be grossly normal. Clinical correlation recommended. Please correlate with a nuclear imaging study. cc: MD Luz Maria Jonas CRNP
[2019-11-11] MEDS: PRILOSEC PO SCH (20:11)
[2019-11-11] MEDS ORDERED: XANAX PO ONE (20:34)
[2019-11-12] MEDS: CARDIZEM PO SCH (01:14)
[2019-11-12] MEDS: CARAFATE LIQUID PO SCH ×4 (01:14→21:13)
[2019-11-12] MEDS: DUONEB (A & A) INH SCH ×7 (03:44→23:37)
[2019-11-12] MEDS: NS 1,000 ML IV SCH ×2 (05:06→17:44)
[2019-11-12] MEDS: PRILOSEC PO SCH ×2 (06:01→21:13)
[2019-11-12 06:39] LABS: AGAP 9; BUN 18 mg/dL (8-22); CALCIUM 8.2 mg/dL (8.8-10.2); CHLORIDE 108 mmol/L (98-107); COSMO 287; CREATININE 1.1 mg/dL (0.7-1.2); ESTIMATED GFR > 60; GLUCOSE 97 mg/dL (70-104); POTASSIUM 3.8 mmol/L (3.5-5.1); SODIUM 143 mmol/L (136-145); TCO2 26 mmol/L (25-35)
[2019-11-12 06:40] LABS: BASO# 0.04 X1000 (0.0-0.2); BASO% 0.5 % (0.0-0.8); EOS# 0.49 X1000 (0.0-0.7); HEMATOCRIT 42.9 % (42.0-52.0); HEMOGLOBIN 13.7 g/dL (14.0-18.0); IMM GRAN# 0.02 X1000 (0.0-0.04); IMM GRAN% 0.2 % (0.0-0.5); LYMPH# 1.96 X1000 (1.2-3.4); MCH 27.7 PG (27-31); MCHC 31.9 g/dL (33-37); MCV 86.8 FL (81-99); MONO# 0.67 X1000 (0.11-0.59); MONO% 8.2 % (1.7-9.3); MPV 11.2 FL (7.4-10.4); NEUT# 4.97 X1000 (1.4-6.5); NEUT% 61.1 % (42.2-75.2); PLT 193 X1000 (130-400); RBC 4.94 XMIL (4.7-6.1); RDW 14.8 % (11.5-14.5); WBC 8.15 X1000 (4.8-10.8)
--- NOTE | 2019-11-12 08:27 | CARDIOLOGY PROGRESS NOTE ---
DATE: 11/12/2019 CHIEF COMPLAINT: "Indigestion", palpitations, irregular heartbeat. SUBJECTIVE: Mr. Cedillo has not had any further episodes of supraventricular tachycardia since yesterday. Since then, he has taken the resting images of his stress test and they showed normal myocardial perfusion. There is no indication of any abnormality. I reviewed the echocardiogram that shows some apical late contractility or dyskinesis. That may be in keeping with his diagnosis of hypertrophic cardiomyopathy. A CT of the chest was done yesterday that showed minimal atelectasis versus fibrotic changes in lung bases. He is just feeling this morning. He is not having any more discomfort in the abdomen. PHYSICAL EXAMINATION: Vital signs: Blood pressure 107/57, temperature 97.2, pulse 61, respirations 11. General: He is awake, alert, oriented, no distress. HEENT: Unremarkable. Chest: Diminished breath sounds at bases. Heart: Sounds are regular and rhythmic. I do not hear a gallop or murmur. Abdomen: Nontender. Extremities: Showed good pulses. No edema. Neurologic exam: Follows commands, moves all 4 extremities. LABORATORY WORK: Today, sodium 143, potassium 3.8, BUN 18, creatinine 1.1. His hemoglobin 13%, platelet count 193,000. IMPRESSION: 1. A patient who presented with bouts of supraventricular tachycardia. 2. Elevation of troponin, question of [id number] myocardial infarction. The patient seems to have underlying hypertrophic cardiomyopathy. I suspect that the troponin elevation relates to the combination of those 2 conditions. 3. Question of coronary heart disease. 4. Hypertension. 5. Hyperlipidemia. 6. History of gallstone pancreatitis. RECOMMENDATIONS: At this time, we will proceed with Lexiscan myocardial perfusion stress test. If that test is normal, the patient may be discharged. At this time, I would certainly put him on diltiazem CD probably 120 mg twice a day plus a low-dose of beta-ford possibly metoprolol 25 mg long-acting (XL) once a day.We will start with metoprolol 12.5 mg BID. At home, he had been taking just Eliquis and aspirin. Because of his hyperdynamic ventricle, he really needs to be probably on a combination of both. We may consider discharging him with a 30 day loop recorder monitor and then follow him up at the office. cc: Oswald Selby MD MTDD
[2019-11-12] MEDS ORDERED: LEXISCAN ONE (08:30)
[2019-11-12] MEDS ORDERED: AMINOPHYLLINE ONE (09:23)
[2019-11-12] MEDS: CARDIZEM CD PO SCH ×2 (10:14→21:49)
[2019-11-12] MEDS: LOPRESSOR PO SCH ×2 (10:14→21:49)
[2019-11-12] MEDS: ELIQUIS PO SCH (10:15)
[2019-11-12] MEDS: ASPIRIN PO SCH (10:16)
--- NOTE | 2019-11-12 14:21 | GASTROENTEROLOGY CONSULTATION ---
DATE: 11/12/2019 REASON FOR CONSULT: Melena. HISTORY OF PRESENT ILLNESS: Mr. Cedillo is an 88-year-old, male with a history of atrial fibrillation, congestive heart failure, hypertension, hyperlipidemia, and kidney stones. He presented to the ER on Sunday, complaining of dizziness, and had a fall. He hit his head and his knees. While he was in the ambulance, his EKG showed that he had QRS tachycardia, with heart rate of 188 beats per minute. The patient's home medication includes low-dose aspirin and Eliquis. The patient mentioned that when he had the dizzy spell, he also had some shortness of breath, chest pain. He has denied having any nausea, vomiting, or abdominal pain. He is mentions noticing dark tarry stools for the pas 3-4 days onwards. The patient's hemoglobin in and hematocrit on admission were 16.3 and 49.7. Today, his hemoglobin is 13.7 and hematocrit is 42.9. The patient's chest x-ray on 11/10/2019 showed that he has lower lung volumes, accentuated by bibasilar indeterminate infiltrates or atelectasis. The patient's chest CT has shown minimal atelectasis versus fibrotic changes in the lung bases, otherwise no evidence of acute disease. The patient had a nuclear scan done yesterday. His LV EF is 79%. PAST MEDICAL HISTORY: Atrial fibrillation, CHF, hypertension, hyperlipidemia, kidney stones. PAST SURGICAL HISTORY: Cholecystectomy, appendectomy, and right eye surgery. SOCIAL HISTORY: The patient lives with his family. He is a former smoker, and denies any alcohol or illicit drugs. ALLERGIES: No known drug allergies. FAMILY HISTORY: No significant GI malignancies. REVIEW OF SYSTEMS: As per HPI. Otherwise, 12-point review of systems is negative. HOME MEDICATIONS: Simvastatin 40 mg at bedtime, aspirin 81 mg daily, and Eliquis 2.5 mg. PHYSICAL EXAMINATION: Vital Signs: Temperature 98.1, pulse is 56, respirations 20, blood pressure is 142/65, oxygen saturation 100% on room air. The patient's weight is 182 pounds, BMI is 26.1 kg/m2. General: He is alert and oriented x3, in no acute distress, answering questions appropriately. HEENT: Pale conjunctivae. No icterus. PERRL. Neck: Supple. Lungs: Clear to auscultation. Cardiovascular: The patient is bradycardic. Abdomen: Soft, nontender, nondistended. Active bowel sounds heard in all 4 quadrants. Extremities: No clubbing, no cyanosis, no edema. Pedal pulses 2+ present bilaterally. Neurologic: He is alert and oriented x3. Nonfocal. Cranial nerves II through XII are grossly intact. LABORATORY DATA: WBC 8.15, RBC 4.94, Hemoglobin 13.7, Hematocrit 42.9, Platelet 193,000 Sodium 143. Potassium 3.8, chloride 108, carbon dioxide 26, anion gap 9, BUN 18, creatinine 1.1, glucose 97, calcium 8.2. Urinalysis is negative. Immunoglobulin G, A, M are within the normal limits. The patient's blood cultures have shown no growth. Stool for occult blood is negative. IMPRESSION AND PLAN: Melena Anemia Syncope s/p fall Pneumonia Elevated Troponins Acute SUZY PLAN: Mr. Cedillo is an 88-year-old, male with a history of atrial fibrillation, congestive heart failure, hypertension, hyperlipidemia, and kidney stones. GI has been consulted for his melena. The patient is currently receiving normal saline at 75 mL/h. He is on Prilosec 40 mg twice a day. Stop carafate. His H & H is 13.7 and 42.9, patient is hemodynamically stable. We will continue to monitor his hemoglobin and hematocrit. If the patient continues to have melena and his H &H drops, we will plan to do an EGD. At this time, patient is not amendable to EGD. This plan was discussed with Dr. Amaral. Thank you for your consult. Please call us for any further questions or concerns. Dictated by ANDREW Gill for Tariq Amaral MD Physician Attestation I have seen and examined the patient. I have discussed and reviewed the note by Zarina MORALES and agree with findings and plan as documented. [facility]
--- NOTE | 2019-11-12 14:47 | Diag Imaging Result Document ---
PROCEDURE NAME: MYOCARDIAL PERF SCAN, STR/REST - 11/11/2019 STUDY: Lexiscan Cardiolite stress test. SUMMARY: Lexiscan was infused per standard protocol. The patient had some dizziness and visual spots noticed during Lexiscan infusion. Aminophylline intravenously was given subsequently. This relieved her symptoms. The patient was taken back to her room. There was no chest pain. Stress electrocardiogram was negative for ischemia. Following Lexiscan infusion, Cardiolite was injected. 29.9 mCi of Cardiolite was injected for the stress phase; 29.9 mCi of Cardiolite was injected for the rest phase. Gated SPECT images were obtained in standard views. Images revealed chest wall and diaphragmatic attenuation. Normal left ventricular cavity size. Normal myocardial perfusion. Left ventricular ejection fraction by gated SPECT was 79%. CONCLUSIONS: 1. No chest pain. 2. Negative Lexiscan stress electrocardiogram. 3. Normal myocardial perfusion. 4. Left ventricular ejection fraction by gated SPECT was 79%. cc: MD Oswald Hoffmann MD
--- NOTE | 2019-11-12 16:53 | PROGRESS NOTE ---
DATE: 11/12/2019 INTERVAL HISTORY: Patient with no further SVT. Blood counts still trending down, however. No new complaints. No acute events overnight. REVIEW OF SYSTEMS: Twelve point review of systems negative except as per interval history. LABORATORY DATA: WBC 8.15, hemoglobin 13.7, hematocrit 42.9, platelets 193,000. Sodium 143, potassium 3.8, BUN 18, creatinine 1.1. VITAL SIGNS: T-max 98.3 degrees, pulse 66, respirations 20, blood pressure 142/65. O2 saturation 100% on room air. PHYSICAL EXAMINATION: General: No acute distress. Vitals: As above. HEENT: Normocephalic, atraumatic. Moist mucous membranes. Cardiovascular: Regular rate and rhythm currently. Pulmonology: Clear to auscultation bilaterally at this point. Abdomen: Soft, nontender, nondistended. Bowel sounds positive. Extremities: Peripheral pulses intact. No clubbing or cyanosis. Neurologic: Cranial nerves grossly intact. No focal deficits. Psychiatric: Normal mood and affect. Awake. Speech appropriate. ASSESSMENT AND PLAN: 1. Supraventricular tachycardia. Has been in normal sinus rhythm for the last day or so. Diltiazem converted to p.o. by Cardiology. Monitor. 2. Elevated troponin. [id number]-[id number] myocardial infarction versus demand ischemia/type 2 myocardial infarction. Cardiology favoring demand ischemia but getting stress test to further evaluate on tilt as above as well as low-dose beta ford. Continue to monitor. 3. Likely gastrointestinal bleed, acute blood loss anemia, melena. The patient with reports of melena prior to admission. Initial hemoglobin within normal limits, but has trended down from 16.3 to 13.7 over the course of his hospitalization. Gastroenterology to see him. Continue to monitor blood counts. The patient denies history of heavy nonsteroidal anti-inflammatory drug abuse or previous gastrointestinal bleed. 4. Hypokalemia. Remains improved monitor. 5. Mildly elevated creatinine. The patient's baseline creatinine appears to be 0.8 to 1.0. Mildly elevated on admission at 1.3. Has trended down with treatment of his issues. Continue to monitor. 6. Severe pulmonary hypertension, stable, aware. 7. Orthostatic hypotension. Recheck pending. 8. Disposition: We will see what Gastroenterology says but suspect patient will end up needing an esophagogastroduodenoscopy. Continue to monitor blood counts. Based on results of gastroenterology evaluation and stress test, we will go from there.
[2019-11-13] MEDS: CARAFATE LIQUID PO SCH (02:03)
[2019-11-13] MEDS: DUONEB (A & A) INH SCH ×3 (05:57→12:04)
[2019-11-13] MEDS: PRILOSEC PO SCH (06:00)
[2019-11-13 07:11] LABS: BASO# 0.03 X1000 (0.0-0.2); BASO% 0.4 % (0.0-0.8); EOS# 0.56 X1000 (0.0-0.7); EOS% 6.7 % (0.0-10.0); HEMATOCRIT 42.5 % (42.0-52.0); HEMOGLOBIN 13.5 g/dL (14.0-18.0); IMM GRAN# 0.02 X1000 (0.0-0.04); IMM GRAN% 0.2 % (0.0-0.5); LYMPH# 2.09 X1000 (1.2-3.4); MCH 27.7 PG (27-31); MCHC 31.8 g/dL (33-37); MCV 87.3 FL (81-99); MONO# 0.77 X1000 (0.11-0.59); MONO% 9.2 % (1.7-9.3); MPV 11.1 FL (7.4-10.4); NEUT# 4.88 X1000 (1.4-6.5); NEUT% 58.5 % (42.2-75.2); PLT 187 X1000 (130-400); RBC 4.87 XMIL (4.7-6.1); RDW 14.7 % (11.5-14.5); WBC 8.35 X1000 (4.8-10.8)
[2019-11-13 07:35] LABS: CALCIUM 8.5 mg/dL (8.8-10.2); CREATININE 1.3 mg/dL (0.7-1.2); POTASSIUM 4.1 mmol/L (3.5-5.1)
[2019-11-13] MEDS: CARDIZEM CD PO SCH (08:20)
[2019-11-13] MEDS: LOPRESSOR PO SCH (08:20)
[2019-11-13] MEDS: NS 1,000 ML IV SCH (08:20)
--- NOTE | 2019-11-13 08:23 | CARDIOLOGY PROGRESS NOTE ---
DATE: 11/13/2019 CHIEF COMPLAINT: Palpitations, weakness, abnormal cardiac enzymes. SUBJECTIVE: Mr. Cedillo basically is feeling fine today. He has not had any further episodes of palpitations. His telemetry for the past 24 hours showed no arrhythmia. His stress test was completed yesterday and basically came back normal. OBJECTIVE: Vital signs: Blood pressure 112/56, pulse 50, respirations 13, temperature 98 degrees. General: He is awake, alert, no distress. HEENT: Normal. Chest: Clear to auscultation and percussion. Heart: Sounds regular and rhythmic. No gallop or murmur. Abdomen: Nontender. Extremities: Showed no edema. Neurologic exam: Follows commands, moves 4 extremities. BLOOD WORK: This morning, his hemoglobin is 13.5 which basically looks almost the same as yesterday's. IMPRESSION: 1. Patient presented to the hospital with bouts of supraventricular tachycardia. We have put him on a combination of low-dose beta-ford and diltiazem and he seems to be doing fine. 2. Question of gastrointestinal bleed. 3. Elevated troponins, question of [id number] myocardial infarction. The patient has echocardiographic suggestion of hypertrophic cardiomyopathy nonobstructive. I suspect that the troponin elevation has to do with a combination of underlying hypertrophic cardiomyopathy and supraventricular tachycardia. At this point in time, really I do not find any compelling reason to proceed with heart catheterization especially since he is not having any chest pain and there have been no dramatic changes on his electrocardiogram. 4. History of hypertension and hyperlipidemia. RECOMMENDATIONS: At this time, the patient may be discharged home with instructions to take the medications as he is doing now, would probably keep him on diltiazem CD 120 mg twice daily and metoprolol tartrate 12.5 mg twice a day. I will arrange for a 30 day loop recorder monitor and I will see him at my office after 1 month of monitorization assuming that there are no more bouts of SVT. At this time, he is stable for discharge from a cardiac viewpoint. cc: Oswald Selby MD
[2019-11-13 11:50] VITALS: BP 124/55
[2019-11-13 13:35] LABS: HEMATOCRIT 45.1 % (42.0-52.0); HEMOGLOBIN 14.4 g/dL (14.0-18.0)
--- NOTE | 2019-11-13 13:50 | GASTROENTEROLOGY PROGRESS NOTE ---
DATE: 11/13/2019 SUBJECTIVE: Mr. Cedlilo is an 88-year-old male resting in bed. The patient has denied any complaints of nausea, vomiting, or abdominal pain. He has also denied noticing any further bleeding episodes. OBJECTIVE: Vital Signs: Temperature 97.6 degrees, pulse 47, respirations 19, blood pressure 124/55, oxygen saturation 100% on room air. The patient's weight is 182 pounds. BMI is 26.1 kg/m2. General: He is alert, oriented x3, and in no acute distress. HEENT: Pale conjunctivae. No icterus. PERRL. Neck: Supple. Lungs: Clear to auscultation. Cardiovascular: Patient is bradycardic. Abdomen: Soft, nontender, nondistended. Active bowel sounds heard in all 4 quadrants. Extremities: No clubbing, no cyanosis, no edema. Pedal pulses 2+ present bilaterally. Neurologic: He is alert, oriented x3. LABORATORY DATA: WBCs are 8.35, RBC 4.87, hemoglobin 13.5, hematocrit is 42.5, platelet count is 187,000. Sodium 139, potassium 4.1, chloride 107, carbon dioxide 23, anion gap 9, BUN is 19, creatinine is 1.3. His glucose 100, calcium is 8.5. IMPRESSION AND PLAN: 1. Melena. 2. Anemia. 3. Syncope status post fall. 4. Pneumonia. 5. Elevated troponins. 6. Acute kidney injury. PLAN: Mr. Cedillo is an 80-year-old male with a history of atrial fibrillation, congestive heart failure, hypertension, hyperlipidemia, and kidney stones. GI is following him for his melena. The patient has denied noticing any further bleeding episodes. He is receiving Prilosec 40 mg p.o. twice a day. The patient is on IV fluids normal saline at 75 mL/h. The patient is currently hemodynamically stable. His hemoglobin and hematocrit today is 13.5 and 42.5. The patient has mentioned that he does not want to do any procedures in the hospital. We will continue to monitor the patient and follow the plan of care per PCP and assembler clip on sunglasses. This plan was discussed with Dr. Meng. Please call us for any further questions or concerns. Dictated by ANDREW Gill for Deo Meng MD cc: Deo Meng MD I have seen and examined the patient myself and I agree with the above plan of care. Please call us with any further questions or concerns. MTDD
--- NOTE | 2019-11-14 14:43 | DISCHARGE SUMMARY ---
ADMISSION DATE: 11/10/2019 DISCHARGE DATE: 11/13/2019 CONSULTATIONS: 1. Cardiology, Dr. Selby. 2. GI, Dr. Amaral. PERTINENT STUDIES: 1. Chest x-ray with low lung volumes and atelectasis. 2. CT chest with atelectasis versus fibrotic change in the lung bases, but no evidence of pneumonia or other acute process. 3. Cardiac stress test with normal EF. No evidence of ischemia. 4. Initial hemoglobin 16.3, trended down to 13.5 and came back up to 14.4. High sensitivity troponin initially 232, trended up to 389. BNP 2052. 5. Echocardiogram with normal EF, mild concentric LVH, moderate pulmonary hypertension with pressure of 50 to 55. No significant valvular abnormality. DISCHARGE DIAGNOSES: 1. Supraventricular tachycardia. 2. Demand ischemia/type 2 myocardial infarction. 3. Gastrointestinal bleed. 4. Acute blood loss anemia. 5. Hypokalemia. 6. Pulmonary hypertension. 7. Orthostatic hypotension. HOSPITAL COURSE: The patient presented, initially brought in by EMS with complaints of dizziness and falling and palpitations. En route, EKG showed SVT with a rate of 188. He converted spontaneously in the ER. He did have an elevated troponin which trended up slightly and Cardiology was involved, but never really had any chest pain. EKG aside from the above-mentioned SVT was unremarkable and stress test showed no ischemia. So, Cardiology felt that the elevated troponin was due to the SVT rather than acute coronary syndrome. After that initial bout, he did have another episode of SVT with rapid tachycardia and was placed on diltiazem and again, converted back to sinus rhythm. There was some concern for pneumonia initially, but CT did not show any sign of infection. The patient did not have any fever. His oxygenation remained good throughout. The patient did not endorse this initially but later revealed that he had been having melena for 2 or 3 days prior to admission. He then had a bout of melena in the hospital. His blood counts did trend down from admission from 16.3 to 13.5. GI was consulted and he was placed on Protonix b.i.d. The patient then refused endoscopy. His blood counts were monitored and did trend back up spontaneously to 14.4. The patient was on low-dose Eliquis prior to admission. Discussed with Cardiology and patient, it was felt that it was the best idea, given his recent likely GI bleed, to hold that for now until he has a chance to follow up with GI and arrange outpatient endoscopy, which the patient was strongly encouraged to do. If it can be established that he does not have a major pathology that would be a source of ongoing bleeding, then he should probably be put back on Eliquis at that point. The patient initially had mildly positive orthostatic vital signs but these resolved prior to discharge. Echocardiogram was obtained because of elevated BNP and did show some pulmonary hypertension but no heart failure. Patient was never really volume overloaded. As patient had no further episodes of SVT, his oral medications were adjusted by Cardiology and his blood counts appear to be improving. It was decided he was stable to discharge home to follow up with PCP, GI and Cardiology. DISCHARGE DIET: Cardiac. DISCHARGE MEDICATIONS: Simvastatin 40 mg p.o. at bedtime, aspirin 81 mg daily, diltiazem 120 mg p.o. b.i.d., omeprazole 40 mg p.o. b.i.d., Toprol-XL 25 mg p.o. daily. FOLLOWUP AND PLAN: The patient discharging home on continued b.i.d. omeprazole for likely GI bleed. Continue low-dose aspirin but holding Eliquis until it can be proven that patient does not have major stomach pathology. Recommend patient be placed back on Eliquis if this can be established. The patient to follow up with PCP, Cardiology and GI if he decides to be willing to undergo endoscopy. TIME SPENT: Greater than 30 minutes spent counseling patient and arranging discharge.
== END 2019-11-13 15:18 | disposition home health service (06) | DRG 281 ==
LOC: SUPCPDRO → ED 13:37 → SUATTDRO 15:59 → 2N 15:59
PROVIDERS: ATTEND Internal Medicine